=== PATIENT | male | born 1945 | race Caucasian/White ===

== ENCOUNTER 2016-09-02 14:50 | Emergency (ER) | payer MEDICARE, MEDICAID ==
[2016-09-02] MEDS ORDERED: SODIUM CHLOR 0.9% 1000 ML INJ 1,000 ML IV SCH (15:27)
[2016-09-02] MEDS ORDERED: SODIUM CHLORIDE 0.9% FLUSH 10 ML FLUSH IV FLUSH PRN (15:30)
--- NOTE | 2016-09-02 15:32 | PD ---
HPI Chief Complaint: heat injury Time Seen by Provider: 15:29 Travel History International Travel<30 days: No Contact w/Intl Traveler<30days: No History of Present Illness HPI 71-year-old Bangladeshi male presents to the emergency department via EMS , with reports of possible heat exhaustion. Patient is a patient with history of dementia who was taken outside for some outdoor time, when he was lost for approximately 45 minutes prior to being found again. At that time the patient felt lethargic, and nauseous. He denied headache or other symptoms. No cramping. Patient speaks only Czech. On the transfer and the patient was given 500 mL was normal saline with improvement of his symptoms. Currently he complains of no pain or nausea. He has no known drug allergies. [facility] Social History Alcohol Use: No Tobacco Use: No Substance Use: No Allergies-Medications (Allergen,Severity, Reaction): Coded Allergies: No Known Allergies (Unverified , 09/02/16) Review of Systems ROS Limitations: Poor Historian Except as stated in HPI: all other systems reviewed are Neg General / Constitutional: No: Fever Eyes: No: Visual changes HENT: No: Headaches Cardiovascular: No: Chest Pain or Discomfort Respiratory: No: Shortness of Breath Gastrointestinal: No: Abdominal Pain Genitourinary: No: Dysuria Musculoskeletal: No: Pain Skin: No Rash Neurologic: No: Weakness Psychiatric: No: Depression Endocrine: No: Polydipsia Hematologic/Lymphatic: No: Easy Bruising Physical Exam Narrative GENERAL: Patient appears in no acute distress. SKIN: Warm and dry. Normal color. Normal turgor. No tenting. HEAD: Atraumatic. Normocephalic. EYES: Pupils equal and round. No scleral icterus. No injection or drainage. ENT: No nasal bleeding or discharge. Mucous membranes pink and moist. Pharynx clear. Airway is patent. NECK: Trachea midline. Supple and nontender. CARDIOVASCULAR: Regular rate and rhythm. RESPIRATORY: No accessory muscle use. Clear to auscultation. Breath sounds equal bilaterally. GASTROINTESTINAL: Abdomen soft, non-tender, nondistended. Hepatic and splenic margins not palpable. MUSCULOSKELETAL: Extremities without clubbing, cyanosis, or edema. No obvious deformities. NEUROLOGICAL: Awake and alert. No obvious cranial nerve deficits. Motor grossly within normal limits. Five out of 5 muscle strength in the arms and legs. Normal speech. PSYCHIATRIC: Appropriate mood and affect; insight and judgment normal. Data Data Last Documented VS Vital Signs Date Time Temp Pulse Resp B/P Pulse Ox O2 Delivery O2 Flow Rate FiO2 09/02/16 16:03 61 18 135/74 95 Room Air Orders Complete Blood Count With Diff (09/02/16 15:27) Comprehensive Metabolic Panel (09/02/16 15:27) Urinalysis - C+S If Indicated (09/02/16 15:27) Iv Access Insert/Monitor (09/02/16 15:) Ecg Monitoring (09/02/16 15:27) Oximetry (09/02/16 15:27) Sodium Chlor 0.9% 1000 Ml Inj (Ns 1000 M (09/02/16 15:27) Sodium Chloride 0.9% Flush (Ns Flush) (09/02/16 15:30) Electrocardiogram (09/02/16 15:27) Orthostatic Vital Signs (09/02/16 16:47) Labs Laboratory Tests Test 09/02/16 15:42 White Blood Count 7.5 TH/MM3 Red Blood Count 4.16 MIL/MM3 Hemoglobin 12.9 GM/DL Hematocrit 39.1 % Mean Corpuscular Volume 94.0 FL Mean Corpuscular Hemoglobin 31.1 PG Mean Corpuscular Hemoglobin 33.1 % Concent Red Cell Distribution Width 15.0 % Platelet Count 174 TH/MM3 Mean Platelet Volume 8.9 FL Neutrophils (%) (Auto) 64.3 % Lymphocytes (%) (Auto) 22.7 % Monocytes (%) (Auto) 9.4 % Eosinophils (%) (Auto) 3.1 % Basophils (%) (Auto) 0.5 % Neutrophils # (Auto) 4.9 TH/MM3 Lymphocytes # (Auto) 1.7 TH/MM3 Monocytes # (Auto) 0.7 TH/MM3 Eosinophils # (Auto) 0.2 TH/MM3 Basophils # (Auto) 0.0 TH/MM3 CBC Comment DIFF FINAL Differential Comment Sodium Level 143 MEQ/L Potassium Level 4.4 MEQ/L Chloride Level 107 MEQ/L Carbon Dioxide Level 33.1 MEQ/L Anion Gap 3 MEQ/L Blood Urea Nitrogen 15 MG/DL Creatinine 1.03 MG/DL Estimat Glomerular Filtration 71 ML/MIN Rate Random Glucose 82 MG/DL Calcium Level 8.3 MG/DL Total Bilirubin 0.3 MG/DL Aspartate Amino Transf 19 U/L (AST/SGOT) Alanine Aminotransferase 19 U/L (ALT/SGPT) Alkaline Phosphatase 74 U/L Total Protein 6.6 GM/DL Albumin 3.1 GM/DL MDM Medical Decision Making Medical Screen Exam Complete: Yes Emergency Medical Condition: Yes Differential Diagnosis Heat injury. Nausea. Heat exhaustion. Narrative Course Patient is medically stable at time of exam. Basic labs ordered including CBC, CMP, and urinalysis. EKG is ordered. Patient is given 1000 mL's normal saline bolus. EKG shows sinus bradycardia with sinus arrhythmia. CBC shows no acute findings other than some mild anemia with a hemoglobin of 12.9. I have no previous labs to compare. CMP shows normal electrolytes, carbon dioxide somewhat high at 33.1 with an anion gap of 3. Creatinine is normal at 1.03. Albumin is low at 3.1. Urinalysis is Patient is much improved after saline bolus. Patient is felt to be stable for discharge back to this nursing facility. Patient will be followed up by the physician at that residence. Diagnosis Primary Impression: Heat exhaustion Qualified Code: T67.5XXA - Heat exhaustion, initial encounter Additional Impression: Mild dehydration Referrals: Primary Care Physician Patient Instructions: General Instructions, Heat Exhaustion (ED) Additional Instructions: Patient is much improved after saline bolus. Patient is felt to be stable for discharge back to this nursing facility. Patient will be followed up by the physician at that residence. Med/Other Pt SpecificInfo: No Change to Meds Disposition: 03 DISCHARGE TO SNF Condition: Stable Chad Lopes Sep 02, 2016 15:32
[2016-09-02 15:59] VITALS: RESP 18; O2SAT 98
[2016-09-02 16:03] VITALS: BP 135/74; PULSE 61; RESP 18; O2SAT 95
[2016-09-02 16:12] LABS: AUTOMATED NEUTROPHIL # 4.9 TH/MM3 (1.8-7.7); BASOPHIL % 0.5 % (0.0-2.0); EOSINOPHIL # 0.2 TH/MM3 (0-0.4); EOSINOPHIL % 3.1 % (0.0-4.0); HEMATOCRIT 39.1 % (39.0-51.0); HEMO FLAGS DIFF FINAL; LYMPH % 22.7 % (9.0-44.0); LYMPHOCYTE # 1.7 TH/MM3 (1.0-4.8); MEAN CORPUSCULAR HEMOGLOBIN 31.1 PG (27.0-34.0); MEAN CORPUSCULAR HGB CONC 33.1 % (32.0-36.0); MONO % 9.4 % (0.0-8.0); NEUT % 64.3 % (16.0-70.0); PLATELET COUNT 174 TH/MM3 (150-450); RED BLOOD COUNT 4.16 MIL/MM3 (4.50-5.90); WHITE BLOOD COUNT 7.5 TH/MM3 (4.0-11.0)
[2016-09-02 16:32] LABS: ALKALINE PHOSPHATASE 74 U/L (45-117); TOTAL BILIRUBIN ADULT 0.3 MG/DL (0.2-1.0)
[2016-09-02 16:36] LABS: ALT (GPT) 19 U/L (12-78); ANION GAP 3 MEQ/L (5-15); AST (GOT) 19 U/L (15-37); BICARBONATE 33.1 MEQ/L (21.0-32.0); BLOOD UREA NITROGEN 15 MG/DL (7-18); CHLORIDE 107 MEQ/L (98-107); GLOMERULAR FILTRATION RATE 71 ML/MIN (>89); POTASSIUM 4.4 MEQ/L (3.5-5.1); SODIUM (NA) 143 MEQ/L (136-145)
[2016-09-02 17:38] LABS: BLOOD, URINE NEG (NEG); GLUCOSE,URINE NEG (NEG); KETONE, URINE NEG (NEG); NITRITE,URINE NEG (NEG); URINE COLOR LIGHT-YELLOW (YELLW/STRAW)
[2016-09-02 17:40] LABS: COMMENT (UR) CULT NOT INDICATED; CULTURE IF INDICATED CULT NOT INDICATED
--- NOTE | 2016-09-03 13:15 | EKG ---
Date Performed: 09/02/2016 Time Performed: 15:49:35 PTAGE: 71 years EKG: SINUS BRADYCARDIA WITH SINUS ARRHYTHMIA BORDERLINE ECG NO PREVIOUS TRACING DOCTOR: Cullen Parks Interpretating Date/Time 09/03/2016 13:12:22
== END 2016-09-02 19:00 | disposition home or self-care (01) ==
LOC: NEPE 14:50
DX: T67.5XXA Heat exhaustion, unspecified, initial encounter (principal); E86.0 Dehydration; R00.1 Bradycardia, unspecified; D64.9 Anemia, unspecified; F03.90 Unspecified dementia, unspecified severity, without behavioral disturbance, psychotic disturbance, mood disturbance, and anxiety; I49.8 Other specified cardiac arrhythmias
CPT/HCPCS: 80053; 81001; 85025; 93005; 96360; 99284; J7030

== ENCOUNTER 2017-03-04 09:17 | Emergency (ER) | payer MEDICAID, MEDICARE ==
[~2017-03-04] VITALS: Ht 170.2 cm; Wt 75.5 kg
[2017-03-04 09:23] VITALS: BP 177/83; PULSE 85; RESP 18; TEMP 98; O2SAT 97
[2017-03-04 09:29] VITALS: BP 177/83; PULSE 92; RESP 18; TEMP 98; O2SAT 97
--- NOTE | 2017-03-04 09:36 | PD ---
HPI Chief Complaint: Bleeding Time Seen by Provider: 09:36 Travel History International Travel<30 days: No Contact w/Intl Traveler<30days: No Traveled to known affect area: No History of Present Illness HPI 71-year-old male came to the emergency room with history of hematuria that was noticed at the assisted today. Patient was diagnosed with UTI, ESBL about 2 days ago. Patient has dementia with behavioral issues and they tried to put a catheter to contain the infection since patient is incontinent. However during the procedure there was some bleeding and today when they tried to insert the catheter again he bled a lot which made the assisted concern and he was sent here. Patient was asleep when I went to see him. I was told that his baseline is dementia and noncommunicative. But he has been more lethargic than his baseline. Vital signs were otherwise stable. No obvious bleeding at this point. PFSH Past Medical History Narrative Medical List of his past medical, surgical, social and family history is reviewed from the nursing note. Anxiety: Yes Cardiovascular Problems: Yes Dementia: Yes Diminished Hearing: No Genitourinary: Yes (UTI) Hypertension: Yes Psychiatric: Yes Past Surgical History Surgical History: Unable to Obtain Social History Alcohol Use: No Tobacco Use: No Substance Use: No Allergies-Medications (Allergen,Severity, Reaction): Coded Allergies: No Known Allergies (Unverified Adverse Reaction, Unknown, 03/04/17) Comments No known drug allergies. Reported Meds & Prescriptions Reported Meds & Active Scripts Active Reported Aripiprazole 20 Mg Tab 20 Mg PO DAILY@1600 Tylenol (Acetaminophen) 325 Mg Tab 650 Mg PO Q4H PRN Florastor (Saccharomyces Boulardii) 250 Mg Cap 250 Mg PO BID Melatonin 5 Mg Tab 6 Mg PO HS Atorvastatin (Atorvastatin Calcium) 20 Mg Tab 20 Mg PO HS Lisinopril 10 Mg Tab 10 Mg PO BID Metoprolol Tartrate 25 Mg Tab 25 Mg PO BID Tizanidine (Tizanidine HCl) 4 Mg Cap 4 Mg PO BID Depakote DR (Divalproex Sodium) 125 Mg Tabdr 125 Mg PO BID Namzaric (Memantine-Donepezil) 28-10 Mg Cap 1 Cap PO HS Lactulose 10 Gram/15 Ml (15 Ml) Solution 30 Ml PO TID Aspirin 81 Mg Chew 81 Mg CHEW DAILY Xanax (Alprazolam) 0.5 Mg Tab 0.5 Mg PO BID Bactrim DS (Sulfamethoxazole-Trimethoprim) 800-160 Mg Tab 1 Tab PO BID Zoloft (Sertraline HCl) 25 Mg Tab 75 Mg PO HS Narrative Medication List of his home medications reviewed from the nursing note. Review of Systems Except as stated in HPI: all other systems reviewed are Neg Genitourinary: Positive: Hematuria Physical Exam Narrative GENERAL: Advanced dementia, noncommunicative, no obvious distress SKIN: Focused skin assessment warm/dry. HEAD: Atraumatic. Normocephalic. EYES: Pupils equal and round. No scleral icterus. No injection or drainage. ENT: No nasal bleeding or discharge. Mucous membranes pink and moist. NECK: Trachea midline. No JVD. CARDIOVASCULAR: Regular rate and rhythm. No murmur appreciated. RESPIRATORY: No accessory muscle use. Clear to auscultation. Breath sounds equal bilaterally. GASTROINTESTINAL: Abdomen soft, non-tender, nondistended. Hepatic and splenic margins not palpable. : Circumcised, no active bleeding MUSCULOSKELETAL: No obvious deformities. No clubbing. No cyanosis. No edema. NEUROLOGICAL: Awake and alert. No obvious cranial nerve deficits. Motor grossly within normal limits. Normal speech. PSYCHIATRIC: Appropriate mood and affect; insight and judgment normal. Data Data Last Documented VS Vital Signs Date Time Temp Pulse Resp B/P (MAP) Pulse Ox O2 Delivery O2 Flow Rate FiO2 03/04/17 15:02 03/04/17 12:59 95 16 99 Room Air 03/04/17 09:29 98.0 Orders Orders Complete Blood Count With Diff (03/04/17 09:43) Comprehensive Metabolic Panel (03/04/17 09:43) Urinalysis - C+S If Indicated (03/04/17 09:43) Ct Abd/Pel W/O Iv Contrast (03/04/17 09:43) Ecg Monitoring (03/04/17 09:43) Iv Access Insert/Monitor (03/04/17 09:43) Sodium Chloride 0.9% Flush (Ns Flush) (03/04/17 09:45) Sodium Chlor 0.9% 1000 Ml Inj (Ns 1000 M (03/04/17 09:43) Bladder/Catheter Irrigation (03/04/17 09:43) Prothrombin Time / Inr (Pt) (03/04/17 09:43) Type And Screen (03/04/17 09:43) Ct Abd/Pel W Iv Contrast(Rout) (03/04/17 ) Iohexol 350 Inj (Omnipaque 350 Inj) (03/04/17 11:34) Urine Culture (03/04/17 10:43) Ceftriaxone Inj (Rocephin Inj) (03/04/17 12:00) Nitrofurantoin Monohyd Macrocr (Macrobid (03/04/17 12:00) Metoprolol Tartrate (Lopressor) (03/04/17 12:00) Ed Discharge Order (03/04/17 12:11) Labs Laboratory Tests Test 03/04/17 09:30 03/04/17 10:43 White Blood Count 7.0 TH/MM3 Red Blood Count 3.46 MIL/MM3 Hemoglobin 11.4 GM/DL Hematocrit 33.7 % Mean Corpuscular Volume 97.5 FL Mean Corpuscular Hemoglobin 32.8 PG Mean Corpuscular Hemoglobin Concent 33.7 % Red Cell Distribution Width 15.6 % Platelet Count 172 TH/MM3 Mean Platelet Volume 8.9 FL Neutrophils (%) (Auto) 64.2 % Lymphocytes (%) (Auto) 23.0 % Monocytes (%) (Auto) 10.1 % Eosinophils (%) (Auto) 2.2 % Basophils (%) (Auto) 0.5 % Neutrophils # (Auto) 4.5 TH/MM3 Lymphocytes # (Auto) 1.6 TH/MM3 Monocytes # (Auto) 0.7 TH/MM3 Eosinophils # (Auto) 0.2 TH/MM3 Basophils # (Auto) 0.0 TH/MM3 CBC Comment DIFF FINAL Differential Comment Prothrombin Time 9.7 SEC Prothromb Time International Ratio 1.0 RATIO Blood Urea Nitrogen 36 MG/DL Creatinine 1.43 MG/DL Random Glucose 88 MG/DL Total Protein 6.6 GM/DL Albumin 3.0 GM/DL Calcium Level 8.1 MG/DL Alkaline Phosphatase 57 U/L Aspartate Amino Transf (AST/SGOT) 30 U/L Alanine Aminotransferase (ALT/SGPT) 18 U/L Total Bilirubin 0.4 MG/DL Sodium Level 140 MEQ/L Potassium Level 5.1 MEQ/L Chloride Level 108 MEQ/L Carbon Dioxide Level 25.7 MEQ/L Anion Gap 6 MEQ/L Estimat Glomerular Filtration Rate 48 ML/MIN Urine Color YELLOW Urine Turbidity CLOUDY Urine pH 5.5 Urine Specific [place] 1.018 Urine Protein NEG mg/dL Urine Glucose (UA) NEG mg/dL Urine Ketones NEG mg/dL Urine Occult Blood LARGE Urine Nitrite NEG Urine Bilirubin NEG Urine Urobilinogen LESS THAN 2.0 MG/DL Urine Leukocyte Esterase NEG Urine RBC 40 /hpf Urine WBC 9 /hpf Urine Uric Acid Crystals MANY /hpf Urine Bacteria OCC /hpf Urine Mucus FEW /lpf Microscopic Urinalysis Comment CULTURE INDICATED MDM Medical Decision Making Medical Screen Exam Complete: Yes Emergency Medical Condition: Yes Medical Record Reviewed: Yes Differential Diagnosis Traumatic hematuria, bladder cancer, renal tumor Narrative Course 12:[address] scan does not show any solid tumor of the kidney or the bladder. The nurse was asked to do continuous bladder irrigation but since putting the catheter and he has had clear urine coming out. Blood test results are within acceptable limits except for mild renal insufficiency. I'm comfortable discharging him home. Patient is more awake and his heart rate is in 1 teens and patient is hypertensive. I was told by the nurse that he did not receive his morning blood pressure medications. I have ordered for 25 mg of Lopressor. UA was suggestive of UTI which patient does have. I gave him a dose of Rocephin and Macrobid here. Procedures EKG Prior to Arrival: No Diagnosis Primary Impression: UTI (urinary tract infection) Qualified Codes: N39.0 - Urinary tract infection, site not specified; R31.9 - Hematuria, unspecified Additional Impressions: iatrogenic hematuria Renal insufficiency Referrals: Primary Care Physician Additional Instructions: Continue giving the antibiotic that patient is getting in the assisted. Follow-up with primary care next couple days. Return to the ER if condition worsens or any other new concerns. Med/Other Pt SpecificInfo: No Change to Meds Disposition: DISCHARGE HOME Condition: Stable Logan Martini MD Mar 04, 2017 09:36
[2017-03-04] MEDS ORDERED: SODIUM CHLOR 0.9% 1000 ML INJ 1,000 ML IV ONE (09:43)
[2017-03-04] MEDS ORDERED: SODIUM CHLORIDE 0.9% FLUSH 10 ML FLUSH IVF PRN (09:45)
[2017-03-04 10:21] LABS: AUTOMATED NEUTROPHIL # 4.5 TH/MM3 (1.8-7.7); BASOPHIL % 0.5 % (0.0-2.0); EOSINOPHIL # 0.2 TH/MM3 (0-0.4); EOSINOPHIL % 2.2 % (0.0-4.0); HEMATOCRIT 33.7 % (39.0-51.0); HEMOGLOBIN 11.4 GM/DL (13.0-17.0); LYMPHOCYTE # 1.6 TH/MM3 (1.0-4.8); MEAN CELL VOLUME 97.5 FL (80.0-100.0); MEAN CORPUSCULAR HEMOGLOBIN 32.8 PG (27.0-34.0); MEAN CORPUSCULAR HGB CONC 33.7 % (32.0-36.0); MEAN PLATELET VOLUME 8.9 FL (7.0-11.0); MONO % 10.1 % (0.0-8.0); MONOCYTE # 0.7 TH/MM3 (0-0.9); NEUT % 64.2 % (16.0-70.0); PLATELET COUNT 172 TH/MM3 (150-450); RED BLOOD COUNT 3.46 MIL/MM3 (4.50-5.90); RED CELL DISTRIBUTION WIDTH 15.6 % (11.6-17.2)
--- NOTE | 2017-03-04 10:24 | RADRPT ---
EXAM DATE/TIME: 03/04/2017 09:55 [facility] COMPARISON: No previous studies available for comparison. INDICATIONS : Hematuria. ORAL CONTRAST: No oral contrast ingested. RADIATION DOSE: 8.04 CTDIvol (mGy) ; Patient positioning MEDICAL HISTORY : Dementia. Hypertension. SURGICAL HISTORY : abdominal surgery ENCOUNTER: Initial ACUITY: 1 day PAIN SCALE: 0/10 LOCATION: Bilateral abdomen TECHNIQUE: Volumetric scanning of the abdomen and pelvis was performed. Using automated exposure control and ad justment of the mA and/or kV according to patient size, radiation dose was kept as low as reasonably achievable to obtain optimal diagnostic quality images. DICOM format image data is available electro nically for review and comparison. FINDINGS: Minimal parenchymal changes right lung base nonspecific. Inflammatory process cannot be entirely exc luded. The liver is unremarkable Spleen is small Right kidney: 4.6 cm Bosniak 2 right renal mass Left kidney: 2 low-density lesions left kidney one measuring 4.3 cm, the other 3.5 cm, both adequately evaluated o n today's exam without contrast Retroperitoneum is unremarkable Pelvic contents appear normal without inflammatory changes. CONCLUSION: Inconclusive renal masses more concerning on the right than the left. Lack of intravenous contrast evaluation of kidneys and bladder difficult. Significant pathology can be missed. Steven Chang MD FACR on March 04, 2017 at 10:19 Board Certified Radiologist. This report was verified electronically.
[2017-03-04 10:34] LABS: PROTHROMBIN TIME - PATIENT 9.7 SEC (9.8-11.6)
[2017-03-04 10:41] LABS: ALKALINE PHOSPHATASE 57 U/L (45-117); TOTAL BILIRUBIN ADULT 0.4 MG/DL (0.2-1.0); TOTAL PROTEIN 6.6 GM/DL (6.4-8.2)
[2017-03-04 10:56] LABS: ALT (GPT) 18 U/L (12-78); AST (GOT) 30 U/L (15-37); BICARBONATE 25.7 MEQ/L (21.0-32.0); BLOOD UREA NITROGEN 36 MG/DL (7-18); CALCIUM 8.1 MG/DL (8.5-10.1); CHLORIDE 108 MEQ/L (98-107); CREATININE 1.43 MG/DL (0.60-1.30); GLOMERULAR FILTRATION RATE 48 ML/MIN (>89); GLUCOSE,RANDOM 88 MG/DL (74-106); SODIUM (NA) 140 MEQ/L (136-145)
[2017-03-04] MEDS ORDERED: TYLE325T PO (11:32)
[2017-03-04] MEDS ORDERED: METO25TA3 PO (11:32)
[2017-03-04] MEDS ORDERED: ALPR.5 PO (11:32)
[2017-03-04] MEDS ORDERED: MELA5 PO (11:32)
[2017-03-04] MEDS ORDERED: DEPA125T PO (11:32)
[2017-03-04] MEDS ORDERED: LACT10SO5 PO (11:32)
[2017-03-04] MEDS ORDERED: LISI10TA3 PO (11:32)
[2017-03-04] MEDS ORDERED: FLOR250C PO (11:32)
[2017-03-04] MEDS ORDERED: ZOLO25TA PO (11:32)
[2017-03-04] MEDS ORDERED: ATOR20TA15 PO (11:32)
[2017-03-04] MEDS ORDERED: TIZA4CAP3 PO (11:32)
[2017-03-04] MEDS ORDERED: BACT800T5 PO (11:32)
[2017-03-04] MEDS ORDERED: ASPI-516 CHEW (11:32)
[2017-03-04] MEDS ORDERED: ARIP1TAB14 PO (11:32)
[2017-03-04] MEDS ORDERED: MEMA1CAP2 PO (11:32)
[2017-03-04] MEDS ORDERED: IOHEXOL 350 MG/ML 10 ML VIAL (for RAD DIAG) IVCONTRAST ONE (11:34)
[2017-03-04 11:42] LABS: BACTERIA, URINE OCC /hpf; BILIRUBIN, URINE NEG (NEG); BLOOD, URINE LARGE (NEG); GLUCOSE,URINE NEG (NEG); KETONE, URINE NEG (NEG); MUCUS URINE FEW /lpf (OCC); NITRITE,URINE NEG (NEG); PH, URINE 5.5 (5.0-8.5); URIC ACID CRYSTALS, URINE MANY /hpf; URINE COLOR YELLOW (YELLW/STRAW); URINE LEUKOCYTE ESTERASE NEG (NEG)
[2017-03-04 11:51] VITALS: BP 192/82; PULSE 115; RESP 18; O2SAT 98
--- NOTE | 2017-03-04 11:51 | RADRPT ---
EXAM DATE/TIME: 03/04/2017 11:25 [facility] COMPARISON: CT ABDOMEN & PELVIS W/O CONTRAST, March 04, 2017, 9:55. INDICATIONS : Urethral bleeding for 1 week IV CONTRAST: 94 cc Omnipaque 350 (iohexol) IV ORAL CONTRAST: No oral contrast ingested. RADIATION DOSE: 14.51 CTDIvol (mGy) MEDICAL HISTORY : Hypertension. Dementia. SURGICAL HISTORY : None. ENCOUNTER: Subsequent ACUITY: 1 week PAIN SCALE: Non-responsive LOCATION: flank TECHNIQUE: Volumetric scanning of the abdomen and pelvis was performed. Using automated exposure control and ad justment of the mA and/or kV according to patient size, radiation dose was kept as low as reasonably achievable to obtain optimal diagnostic quality images. DICOM format image data is available electro nically for review and comparison. FINDINGS: Again seen are the minimal parenchymal changes left base. The liver and spleen are unremarkable Pancreas appears normal Right kidney: There is a 5 cm complex Bosniak grade 2-3 cystic mass right kidney containing internal structure and calcification. This is probably not the source of hematuria. Left kidney: Masses in the left kidney are simple cyst or not the cause of hematuria. There is third 1.1 cm mass without enhancement lower pole right kidney again probably cysts. There is no acute pyelonephritis I don't see of bladder mass as source of hematuria. There no inflammatory changes in the abdomen or pelvis Moderate stool is seen throughout the colon Feldman catheter is in the bladder. CONCLUSION: 1. There is no acute pyelonephritis 2. Bosniak 2-3 cysts right kidney probably not the source of hematuria 3. Multiple cysts left kidney, probably not source of hematuria 4. I don't see stone or bladder mass 5. Source of hematuria is not apparent. Steven Chang MD FACR on March 04, 2017 at 11:44 Board Certified Radiologist. This report was verified electronically.
[2017-03-04] MEDS ORDERED: cefTRIAXone INJ 1,000 MG in SODIUM CHLORIDE 0.9% INJ 100 ML IV ONE (12:00)
[2017-03-04] MEDS ORDERED: NITROFURANTOIN MONOHYD MACROCR 100 MG CAP PO ONE (12:00)
[2017-03-04] MEDS ORDERED: METOPROLOL TARTRATE 25 MG TAB PO ONE (12:00)
[2017-03-04 12:42] VITALS: BP 192/88; PULSE 112; RESP 16; O2SAT 96
[2017-03-04 12:59] VITALS: BP 178/75; PULSE 95; RESP 16; O2SAT 99
== END 2017-03-04 15:04 | disposition home or self-care (01) ==
LOC: NEPE 09:17
DX: N39.0 Urinary tract infection, site not specified (principal); R31.9 Hematuria, unspecified; N28.1 Cyst of kidney, acquired; F03.90 Unspecified dementia, unspecified severity, without behavioral disturbance, psychotic disturbance, mood disturbance, and anxiety; F41.9 Anxiety disorder, unspecified; I10 Essential (primary) hypertension; Z79.82 Long term (current) use of aspirin; Z79.899 Other long term (current) drug therapy
CPT/HCPCS: 74176; 74177; 80053; 81001; 85025; 85610; 86850; 86900; 86901; 87086; 96361; 96365; 99285; J0696; J7030; Q9967

== ENCOUNTER 2017-03-08 09:01 | Emergency (ER) | payer MEDICARE ==
[~2017-03-08] VITALS: Ht 170.2 cm; Wt 75.5 kg
[~2017-03-08 09:01] MED LIST: ALPR.5 PO; ARIP1TAB14 PO; ASPI-516 CHEW; ATOR20TA15 PO; BACT800T5 PO; DEPA125T PO; FLOR250C PO; LACT10SO5 PO; LISI10TA3 PO; MELA5 PO; MEMA1CAP2 PO; METO25TA3 PO; TIZA4CAP3 PO; TYLE325T PO; ZOLO25TA PO
[2017-03-08 09:08] VITALS: BP 148/72; PULSE 93; RESP 17; TEMP 98
[2017-03-08] MEDS ORDERED: FLOR250C PO (09:45)
[2017-03-08] MEDS ORDERED: LACT10SO PO (09:45)
--- NOTE | 2017-03-08 10:55 | PD ---
HPI Chief Complaint: Complaint Time Seen by Provider: 10:11 Travel History International Travel<30 days: No Contact w/Intl Traveler<30days: No Traveled to known affect area: No History of Present Illness HPI 71yo M presented to the ED with hematuria [facility]. The pt was brought to the hospital two days prior for hematuria and was diagnosed with a UTI and ESBL. A Feldman was placed for 48hrs. After removal, the NH noticed aleksandra , bright red blood and brought him back to the ED. Pt was a poor historian due to his AMS and Amharic as his primary language. HPI was taken using a medical or surgical instrument maker. Modifying Factors: None Associated Signs & Symptoms: Hematuria after catheter removal Risk Factors: Previous hematuria PFSH Past Medical History Anxiety: Yes Depression: Yes Cardiovascular Problems: Yes High Cholesterol: Yes Dementia: Yes Diminished Hearing: No GERD: Yes Glaucoma: Yes Genitourinary: Yes (UTI) Hypertension: Yes Psychiatric: Yes (INSOMNIA, MOOD DISORDER) Tetanus Vaccination: Unknown ?: Not Social History Alcohol Use: No Tobacco Use: No Substance Use: No Allergies-Medications (Allergen,Severity, Reaction): Coded Allergies: No Known Allergies (Unverified Adverse Reaction, Unknown, 03/04/17) Reported Meds & Prescriptions Reported Meds & Active Scripts Active Reported Lactulose Liq (Lactulose) 10 Gm/15 Ml Soln 30 Ml PO TID Aripiprazole 20 Mg Tab 20 Mg PO DAILY@1600 Tylenol (Acetaminophen) 325 Mg Tab 650 Mg PO Q4H PRN Florastor (Saccharomyces Boulardii) 250 Mg Cap 250 Mg PO BID Melatonin 5 Mg Tab 6 Mg PO HS Atorvastatin (Atorvastatin Calcium) 20 Mg Tab 20 Mg PO HS Lisinopril 10 Mg Tab 10 Mg PO BID Metoprolol Tartrate 25 Mg Tab 25 Mg PO BID Tizanidine (Tizanidine HCl) 4 Mg Cap 4 Mg PO BID Depakote DR (Divalproex Sodium) 125 Mg Tabdr 125 Mg PO BID Namzaric (Memantine-Donepezil) 28-10 Mg Cap 1 Cap PO HS Aspirin 81 Mg Chew 81 Mg CHEW DAILY Xanax (Alprazolam) 0.5 Mg Tab 0.5 Mg PO BID Zoloft (Sertraline HCl) 25 Mg Tab 75 Mg PO HS Review of Systems ROS Limitations: Altered Mental Status Physical Exam Exam Limitations: Altered Mental Status, Poor Historian Narrative GENERAL: 71yo somnolent M who is WDWN. Poor historian due to AMS and primary language being Amharic. Awake and alert. SKIN: Warm and dry. HEAD: Atraumatic. Normocephalic. NECK: Trachea midline. No JVD. CARDIOVASCULAR: Regular rate and rhythm. RESPIRATORY: No accessory muscle use. Clear to auscultation. Breath sounds equal bilaterally. GASTROINTESTINAL: Abdomen soft, non-tender, nondistended. Hepatic and splenic margins not palpable. MUSCULOSKELETAL: Extremities without clubbing, cyanosis, or edema. No obvious deformities. NEUROLOGICAL: No obvious cranial nerve deficits. Motor grossly within normal limits. Normal speech. PSYCHIATRIC: Appropriate mood and affect; insight and judgment poor. Data Data Last Documented VS Vital Signs Date Time Temp Pulse Resp B/P (MAP) Pulse Ox O2 Delivery O2 Flow Rate FiO2 03/08/17 09:08 98.0 93 17 148/72 (97) Orders Orders Complete Blood Count With Diff (03/08/17 10:15) Basic Metabolic Panel (Bmp) (03/08/17 10:15) Prothrombin Time / Inr (Pt) (03/08/17 10:15) Act Partial Throm Time (Ptt) (03/08/17 10:15) Urinalysis - C+S If Indicated (03/08/17 10:15) Urinary Catheter Insert/Apply (03/08/17 10:37) Urinary Catheter - Remove (03/08/17 11:16) Ed Discharge Order (03/08/17 12:20) Labs Laboratory Tests Test 03/08/17 10:39 03/08/17 11:05 White Blood Count 4.8 TH/MM3 Red Blood Count 3.55 MIL/MM3 Hemoglobin 11.3 GM/DL Hematocrit 34.0 % Mean Corpuscular Volume 95.9 FL Mean Corpuscular Hemoglobin 32.0 PG Mean Corpuscular Hemoglobin Concent 33.4 % Red Cell Distribution Width 15.1 % Platelet Count 235 TH/MM3 Mean Platelet Volume 8.0 FL Neutrophils (%) (Auto) 59.4 % Lymphocytes (%) (Auto) 29.5 % Monocytes (%) (Auto) 6.3 % Eosinophils (%) (Auto) 4.3 % Basophils (%) (Auto) 0.5 % Neutrophils # (Auto) 2.8 TH/MM3 Lymphocytes # (Auto) 1.4 TH/MM3 Monocytes # (Auto) 0.3 TH/MM3 Eosinophils # (Auto) 0.2 TH/MM3 Basophils # (Auto) 0.0 TH/MM3 CBC Comment DIFF FINAL Differential Comment Prothrombin Time 9.9 SEC Prothromb Time International Ratio 1.0 RATIO Activated Partial Thromboplast Time 24.3 SEC Blood Urea Nitrogen 15 MG/DL Creatinine 1.03 MG/DL Random Glucose 131 MG/DL Calcium Level 8.5 MG/DL Sodium Level 142 MEQ/L Potassium Level 4.0 MEQ/L Chloride Level 106 MEQ/L Carbon Dioxide Level 30.6 MEQ/L Anion Gap 5 MEQ/L Estimat Glomerular Filtration Rate 71 ML/MIN Urine Color YELLOW Urine Turbidity CLEAR Urine pH 5.0 Urine Specific [place] 1.012 Urine Protein NEG mg/dL Urine Glucose (UA) NEG mg/dL Urine Ketones NEG mg/dL Urine Occult Blood MOD Urine Nitrite NEG Urine Bilirubin NEG Urine Urobilinogen LESS THAN 2.0 MG/DL Urine Leukocyte Esterase NEG Urine RBC 5 /hpf Urine WBC 1 /hpf Urine Squamous Epithelial Cells <1 /hpf Urine Renal Epithelial Cells <1 /hpf Urine Mucus FEW /lpf Microscopic Urinalysis Comment CULT NOT INDICATED MDM Medical Decision Making Medical Screen Exam Complete: Yes Emergency Medical Condition: Yes Interpretation(s) Laboratory Tests Test 03/08/17 10:39 03/08/17 11:05 Red Blood Count 3.55 MIL/MM3 (4.50-5.90) Hemoglobin 11.3 GM/DL (13.0-17.0) Hematocrit 34.0 % (39.0-51.0) Eosinophils (%) (Auto) 4.3 % (0.0-4.0) Random Glucose 131 MG/DL (74-106) Estimat Glomerular Filtration Rate 71 ML/MIN (>89) Urine Occult Blood MOD (NEG) Urine RBC 5 /hpf (0-3) Urine Mucus FEW /lpf (OCC) Differential Diagnosis Hematuria after catheter removal Narrative Course Patient does not know why he is in the ER. He has baseline dementia but has no current complaints. Apparently the penitentiary had removed his catheter and there was hematuria after the removal. He had a Feldman catheter placed in the ER and there was no significant bleeding. UA was fairly unremarkable. Lab work did not show significant anemia. At this point, my plan would be to release the patient back to [facility]entiary. Hematuria has apparently resolved. Return for any new issues as needed. Diagnosis Primary Impression: Hematuria Disposition: 03 DISCHARGE TO SNF Condition: Stable SoonMaura alvarez MD Mar 08, 2017 10:55
[2017-03-08 10:57] LABS: AUTOMATED NEUTROPHIL # 2.8 TH/MM3 (1.8-7.7); BASOPHIL % 0.5 % (0.0-2.0); EOSINOPHIL # 0.2 TH/MM3 (0-0.4); EOSINOPHIL % 4.3 % (0.0-4.0); HEMOGLOBIN 11.3 GM/DL (13.0-17.0); LYMPH % 29.5 % (9.0-44.0); LYMPHOCYTE # 1.4 TH/MM3 (1.0-4.8); MEAN CELL VOLUME 95.9 FL (80.0-100.0); MEAN CORPUSCULAR HGB CONC 33.4 % (32.0-36.0); MONO % 6.3 % (0.0-8.0); MONOCYTE # 0.3 TH/MM3 (0-0.9); NEUT % 59.4 % (16.0-70.0); PLATELET COUNT 235 TH/MM3 (150-450); RED BLOOD COUNT 3.55 MIL/MM3 (4.50-5.90); RED CELL DISTRIBUTION WIDTH 15.1 % (11.6-17.2); WHITE BLOOD COUNT 4.8 TH/MM3 (4.0-11.0)
[2017-03-08 11:07] LABS: PROTHROMBIN TIME - PATIENT 9.9 SEC (9.8-11.6)
[2017-03-08 11:18] LABS: BICARBONATE 30.6 MEQ/L (21.0-32.0); CALCIUM 8.5 MG/DL (8.5-10.1); CREATININE 1.03 MG/DL (0.60-1.30)
[2017-03-08 11:47] LABS: BILIRUBIN, URINE NEG (NEG); BLOOD, URINE MOD (NEG); GLUCOSE,URINE NEG (NEG); KETONE, URINE NEG (NEG); MUCUS URINE FEW /lpf (OCC); NITRITE,URINE NEG (NEG); RENAL EPITHELIAL CELLS <1 /hpf; SQUAMOUS EPITHELIAL CELL URINE <1 /hpf (0-5); URINE COLOR YELLOW (YELLW/STRAW); URINE LEUKOCYTE ESTERASE NEG (NEG)
== END 2017-03-08 15:31 ==
LOC: NEPC 09:01 → NEDAMB 15:31
DX: R31.9 Hematuria, unspecified (principal); F03.90 Unspecified dementia, unspecified severity, without behavioral disturbance, psychotic disturbance, mood disturbance, and anxiety; E78.00 Pure hypercholesterolemia, unspecified; K21.9 Gastro-esophageal reflux disease without esophagitis; I10 Essential (primary) hypertension
CPT/HCPCS: 51702; 80048; 81001; 85025; 85610; 85730

== ENCOUNTER 2017-03-09 00:04 | Emergency (ER) | payer MEDICARE, OTHER ==
[~2017-03-09] VITALS: Ht 170.2 cm; Wt 65.0 kg
[~2017-03-09 00:04] MED LIST changes: -BACT800T5 PO; +LACT10SO PO; -LACT10SO5 PO
[2017-03-09 04:15] VITALS: BP 158/84; PULSE 91; RESP 16; TEMP 98.9; O2SAT 95
[2017-03-09] MEDS ORDERED: SODIUM CHLORIDE 0.9% FLUSH 10 ML FLUSH IV FLUSH PRN (05:00)
[2017-03-09 05:20] VITALS: O2SAT 96
[2017-03-09 05:27] LABS: AUTOMATED NEUTROPHIL # 5.8 TH/MM3 (1.8-7.7); BASOPHIL % 0.5 % (0.0-2.0); EOSINOPHIL # 0.1 TH/MM3 (0-0.4); EOSINOPHIL % 0.8 % (0.0-4.0); HEMATOCRIT 36.2 % (39.0-51.0); HEMOGLOBIN 11.9 GM/DL (13.0-17.0); LYMPHOCYTE # 1.1 TH/MM3 (1.0-4.8); MEAN CELL VOLUME 96.6 FL (80.0-100.0); MEAN CORPUSCULAR HEMOGLOBIN 31.7 PG (27.0-34.0); MEAN CORPUSCULAR HGB CONC 32.8 % (32.0-36.0); MEAN PLATELET VOLUME 7.4 FL (7.0-11.0); MONO % 5.4 % (0.0-8.0); MONOCYTE # 0.4 TH/MM3 (0-0.9); NEUT % 78.3 % (16.0-70.0); PLATELET COUNT 255 TH/MM3 (150-450); RED BLOOD COUNT 3.74 MIL/MM3 (4.50-5.90); RED CELL DISTRIBUTION WIDTH 15.4 % (11.6-17.2); WHITE BLOOD COUNT 7.4 TH/MM3 (4.0-11.0)
[2017-03-09 05:47] LABS: ALBUMIN 3.6 GM/DL (3.4-5.0); ALKALINE PHOSPHATASE 80 U/L (45-117); ALT (GPT) 29 U/L (12-78); AST (GOT) 31 U/L (15-37); BICARBONATE 28.8 MEQ/L (21.0-32.0); BLOOD UREA NITROGEN 15 MG/DL (7-18); CALCIUM 8.9 MG/DL (8.5-10.1); CHLORIDE 99 MEQ/L (98-107); CREATININE 1.25 MG/DL (0.60-1.30); GLOMERULAR FILTRATION RATE 57 ML/MIN (>89); GLUCOSE,RANDOM 100 MG/DL (74-106); SODIUM (NA) 138 MEQ/L (136-145); TOTAL BILIRUBIN ADULT 0.4 MG/DL (0.2-1.0); TOTAL PROTEIN 7.7 GM/DL (6.4-8.2)
--- NOTE | 2017-03-09 07:12 | PD ---
HPI . Altered mental status Chief Complaint: Altered Mental Status Time Seen by Provider: 04:13 Travel History International Travel<30 days: No Contact w/Intl Traveler<30days: No Traveled to known affect area: No History of Present Illness HPI 71-year-old male seen yesterday in ED diagnosed with a urinary tract infection, treated with antibiotic, was sent back from detention last night secondary to possible altered mental status, possible partially treated urinary tract infection. Patient is acting as per usual, noncontributory strain secondary to his dementia. PFSH Past Medical History Narrative Medical Past medical history reviewed Anxiety: Yes Depression: Yes Cardiovascular Problems: Yes High Cholesterol: Yes Dementia: Yes Diminished Hearing: No GERD: Yes Glaucoma: Yes Genitourinary: Yes (UTI) Hypertension: Yes Psychiatric: Yes (INSOMNIA, MOOD DISORDER) Past Surgical History Surgical History: No Previous Surgery Social History Alcohol Use: No Tobacco Use: No Substance Use: No Allergies-Medications (Allergen,Severity, Reaction): Coded Allergies: No Known Allergies (Unverified Adverse Reaction, Unknown, 03/04/17) Reported Meds & Prescriptions Reported Meds & Active Scripts Active Reported Lactulose Liq (Lactulose) 10 Gm/15 Ml Soln 30 Ml PO TID Aripiprazole 20 Mg Tab 20 Mg PO DAILY@1600 Tylenol (Acetaminophen) 325 Mg Tab 650 Mg PO Q4H PRN Florastor (Saccharomyces Boulardii) 250 Mg Cap 250 Mg PO BID Melatonin 5 Mg Tab 6 Mg PO HS Atorvastatin (Atorvastatin Calcium) 20 Mg Tab 20 Mg PO HS Lisinopril 10 Mg Tab 10 Mg PO BID Metoprolol Tartrate 25 Mg Tab 25 Mg PO BID Tizanidine (Tizanidine HCl) 4 Mg Cap 4 Mg PO BID Depakote DR (Divalproex Sodium) 125 Mg Tabdr 125 Mg PO BID Namzaric (Memantine-Donepezil) 28-10 Mg Cap 1 Cap PO HS Aspirin 81 Mg Chew 81 Mg CHEW DAILY Xanax (Alprazolam) 0.5 Mg Tab 0.5 Mg PO BID Zoloft (Sertraline HCl) 25 Mg Tab 75 Mg PO HS Narrative Medication Allergies and medications reviewed Review of Systems Except as stated in HPI: all other systems reviewed are Neg (as per detention) General / Constitutional: No: Fever Eyes: No: Visual changes HENT: No: Headaches Cardiovascular: No: Chest Pain or Discomfort Respiratory: No: Shortness of Breath Gastrointestinal: No: Abdominal Pain Genitourinary: No: Dysuria Musculoskeletal: No: Pain Skin: No Rash Neurologic: No: Weakness Psychiatric: No: Depression Endocrine: No: Polydipsia Hematologic/Lymphatic: No: Easy Bruising Physical Exam Narrative GENERAL: Awake and demented, noncontributory strain. Very pleasant and cooperative SKIN: Warm and dry. Color is normal no diaphoresis cyanosis or pallor HEAD: Atraumatic. Normocephalic. EYES: Pupils equal and round. No scleral icterus. No injection or drainage. ENT: No nasal bleeding or discharge. Mucous membranes pink and moist. NECK: Trachea midline. No JVD. CARDIOVASCULAR: Regular rate and rhythm. RESPIRATORY: No accessory muscle use. Clear to auscultation. Breath sounds equal bilaterally. GASTROINTESTINAL: Abdomen soft, non-tender, nondistended. Hepatic and splenic margins not palpable. MUSCULOSKELETAL: Extremities without clubbing, cyanosis, or edema. No obvious deformities. NEUROLOGICAL: Awake and alert. No obvious deficits other than dementia PSYCHIATRIC: Patient is demented and pleasant Data Data Last Documented VS Vital Signs Date Time Temp Pulse Resp B/P (MAP) Pulse Ox O2 Delivery O2 Flow Rate FiO2 03/09/17 05:20 96 Room Air 03/09/17 04:15 98.9 91 16 158/84 (108) Orders Orders Complete Blood Count With Diff (03/09/17 04:54) Comprehensive Metabolic Panel (03/09/17 04:54) Urinalysis - C+S If Indicated (03/09/17 04:54) Iv Access Insert/Monitor (03/09/17 04:54) Ecg Monitoring (03/09/17 04:54) Oximetry (03/09/17 04:54) Sodium Chloride 0.9% Flush (Ns Flush) (03/09/17 05:00) Labs Laboratory Tests Test 03/09/17 05:15 White Blood Count 7.4 TH/MM3 Red Blood Count 3.74 MIL/MM3 Hemoglobin 11.9 GM/DL Hematocrit 36.2 % Mean Corpuscular Volume 96.6 FL Mean Corpuscular Hemoglobin 31.7 PG Mean Corpuscular Hemoglobin Concent 32.8 % Red Cell Distribution Width 15.4 % Platelet Count 255 TH/MM3 Mean Platelet Volume 7.4 FL Neutrophils (%) (Auto) 78.3 % Lymphocytes (%) (Auto) 15.0 % Monocytes (%) (Auto) 5.4 % Eosinophils (%) (Auto) 0.8 % Basophils (%) (Auto) 0.5 % Neutrophils # (Auto) 5.8 TH/MM3 Lymphocytes # (Auto) 1.1 TH/MM3 Monocytes # (Auto) 0.4 TH/MM3 Eosinophils # (Auto) 0.1 TH/MM3 Basophils # (Auto) 0.0 TH/MM3 CBC Comment DIFF FINAL Differential Comment Blood Urea Nitrogen 15 MG/DL Creatinine 1.25 MG/DL Random Glucose 100 MG/DL Total Protein 7.7 GM/DL Albumin 3.6 GM/DL Calcium Level 8.9 MG/DL Alkaline Phosphatase 80 U/L Aspartate Amino Transf (AST/SGOT) 31 U/L Alanine Aminotransferase (ALT/SGPT) 29 U/L Total Bilirubin 0.4 MG/DL Sodium Level 138 MEQ/L Potassium Level 3.1 MEQ/L Chloride Level 99 MEQ/L Carbon Dioxide Level 28.8 MEQ/L Anion Gap 10 MEQ/L Estimat Glomerular Filtration Rate 57 ML/MIN MDM Medical Decision Making Medical Screen Exam Complete: Yes Emergency Medical Condition: Yes Medical Record Reviewed: Yes Differential Diagnosis Dementia, UTI, altered mental status Narrative Course Patient is acting as per usual. Patient was seen yesterday, urine sample obtained do not represent UTI. She was transferred back from detention with potential symptoms of urinary tract infection. Awaiting urinalysis this morning Diagnosis Primary Impression: General medical exam Darrell Glover MD Mar 09, 2017 07:12
[2017-03-09 07:14] VITALS: BP 156/85; PULSE 99; RESP 18; O2SAT 95
[2017-03-09 11:25] LABS: BILIRUBIN, URINE NEG (NEG); BLOOD, URINE SMALL (NEG); GLUCOSE,URINE NEG (NEG); KETONE, URINE TRACE mg/dL (NEG); MUCUS URINE FEW /lpf (OCC); NITRITE,URINE NEG (NEG); URINE COLOR YELLOW (YELLW/STRAW); URINE LEUKOCYTE ESTERASE NEG (NEG)
--- NOTE | 2017-03-09 11:37 | PD ---
Physical Exam Date Seen by Provider: Mar 09, 2017 Time Seen by Provider: 07:00 Narrative Patient signed out to me by Dr. Glover, presents [facility] the ER from [facility] apparently for hematuria and they state that he has been more disoriented. Patient had been seen by me yesterday for hematuria, had no hematuria on last evaluation. I do see a small amount of blood in his diaper which appears to be coming from the urethra. H&H is stable. Vital signs are stable. UA did not show any signs of UTI. At this point, patient has had multiple straight catheters and Feldman catheters and I suspect that the blood may be secondary to urethral irritation from the catheterizations. I would avoid further catheterizations at this time. He does not have a UTI and he does not need further antibiotic treatment at this time. Vital signs are stable. I think that this patient at this point appears to be fairly at baseline. My plan would be to release him back to facility and he should follow up with urology there. Return for new issues as needed. Data Data Last Documented VS Vital Signs Date Time Temp Pulse Resp B/P (MAP) Pulse Ox O2 Delivery O2 Flow Rate FiO2 03/09/17 07:14 99 18 156/85 (108) 95 03/09/17 05:20 Room Air 03/09/17 04:15 98.9 Orders Orders Complete Blood Count With Diff (03/09/17 04:54) Comprehensive Metabolic Panel (03/09/17 04:54) Urinalysis - C+S If Indicated (03/09/17 04:54) Iv Access Insert/Monitor (03/09/17 04:54) Ecg Monitoring (03/09/17 04:54) Oximetry (03/09/17 04:54) Sodium Chloride 0.9% Flush (Ns Flush) (03/09/17 05:00) Diet Heart Healthy (03/09/17 Breakfast) Ed Discharge Order (03/09/17 11:32) Labs Laboratory Tests Test 03/09/17 05:15 03/09/17 11:00 White Blood Count 7.4 TH/MM3 Red Blood Count 3.74 MIL/MM3 Hemoglobin 11.9 GM/DL Hematocrit 36.2 % Mean Corpuscular Volume 96.6 FL Mean Corpuscular Hemoglobin 31.7 PG Mean Corpuscular Hemoglobin Concent 32.8 % Red Cell Distribution Width 15.4 % Platelet Count 255 TH/MM3 Mean Platelet Volume 7.4 FL Neutrophils (%) (Auto) 78.3 % Lymphocytes (%) (Auto) 15.0 % Monocytes (%) (Auto) 5.4 % Eosinophils (%) (Auto) 0.8 % Basophils (%) (Auto) 0.5 % Neutrophils # (Auto) 5.8 TH/MM3 Lymphocytes # (Auto) 1.1 TH/MM3 Monocytes # (Auto) 0.4 TH/MM3 Eosinophils # (Auto) 0.1 TH/MM3 Basophils # (Auto) 0.0 TH/MM3 CBC Comment DIFF FINAL Differential Comment Blood Urea Nitrogen 15 MG/DL Creatinine 1.25 MG/DL Random Glucose 100 MG/DL Total Protein 7.7 GM/DL Albumin 3.6 GM/DL Calcium Level 8.9 MG/DL Alkaline Phosphatase 80 U/L Aspartate Amino Transf (AST/SGOT) 31 U/L Alanine Aminotransferase (ALT/SGPT) 29 U/L Total Bilirubin 0.4 MG/DL Sodium Level 138 MEQ/L Potassium Level 3.1 MEQ/L Chloride Level 99 MEQ/L Carbon Dioxide Level 28.8 MEQ/L Anion Gap 10 MEQ/L Estimat Glomerular Filtration Rate 57 ML/MIN Urine Color YELLOW Urine Turbidity CLEAR Urine pH 5.0 Urine Specific [place] 1.019 Urine Protein TRACE mg/dL Urine Glucose (UA) NEG mg/dL Urine Ketones TRACE mg/dL Urine Occult Blood SMALL Urine Nitrite NEG Urine Bilirubin NEG Urine Urobilinogen LESS THAN 2.0 MG/DL Urine Leukocyte Esterase NEG Urine RBC 8 /hpf Urine WBC 1 /hpf Urine Mucus FEW /lpf Microscopic Urinalysis Comment CULT NOT INDICATED [facility] Medical Record Reviewed: Yes Supervised Visit with VARSHA: No HemaPrompt Test Point of Care Internal Pos. & Neg. Controls: Passed Fecal Specimen Occult Blood: Negative Diagnosis Primary Impression: General medical exam Additional Impression: Hematuria Additional Instruction: Follow-up with urology for hematuria. Return for worsening in bleeding or new symptoms as needed. Disposition: 03 DISCHARGE TO SNF Condition: Stable Maura Muller MD Mar 09, 2017 11:37
[2017-03-09 11:38] VITALS: BP 163/81
== END 2017-03-09 12:47 ==
LOC: NEPE 00:04
DX: R31.9 Hematuria, unspecified (principal); F41.9 Anxiety disorder, unspecified; F32.9 Major depressive disorder, single episode, unspecified; E78.00 Pure hypercholesterolemia, unspecified; F03.90 Unspecified dementia, unspecified severity, without behavioral disturbance, psychotic disturbance, mood disturbance, and anxiety; K21.9 Gastro-esophageal reflux disease without esophagitis; H40.9 Unspecified glaucoma; I10 Essential (primary) hypertension; F39 Unspecified mood [affective] disorder
CPT/HCPCS: 80053; 81001; 85025; 99283

== ENCOUNTER 2017-07-29 09:37 | Emergency (ER) | payer MEDICARE, OTHER ==
[~2017-07-29] VITALS: Ht 170.2 cm; Wt 60.0 kg
[~2017-07-29 09:37] MED LIST changes: -ASPI-516 CHEW; +ASPI-516 PO
[2017-07-29 09:47] VITALS: BP 107/56; PULSE 47; RESP 18; TEMP 98.2; O2SAT 96
[2017-07-29 10:16] LABS: AUTOMATED NEUTROPHIL # 2.9 TH/MM3 (1.8-7.7); BASOPHIL % 0.6 % (0.0-2.0); EOSINOPHIL # 0.2 TH/MM3 (0-0.4); EOSINOPHIL % 3.2 % (0.0-4.0); HEMATOCRIT 36.5 % (39.0-51.0); HEMOGLOBIN 11.9 GM/DL (13.0-17.0); LYMPH % 32.7 % (9.0-44.0); LYMPHOCYTE # 1.8 TH/MM3 (1.0-4.8); MEAN CELL VOLUME 93.1 FL (80.0-100.0); MEAN CORPUSCULAR HEMOGLOBIN 30.3 PG (27.0-34.0); MEAN CORPUSCULAR HGB CONC 32.5 % (32.0-36.0); MEAN PLATELET VOLUME 9.5 FL (7.0-11.0); MONO % 10.3 % (0.0-8.0); MONOCYTE # 0.6 TH/MM3 (0-0.9); NEUT % 53.2 % (16.0-70.0); PLATELET COUNT 141 TH/MM3 (150-450); RED BLOOD COUNT 3.92 MIL/MM3 (4.50-5.90); RED CELL DISTRIBUTION WIDTH 16.6 % (11.6-17.2); WHITE BLOOD COUNT 5.5 TH/MM3 (4.0-11.0)
--- NOTE | 2017-07-29 10:21 | RADRPT ---
EXAM DATE: 07/29/2017 10:13 AM EDT AGE/SEX: 72 years / Male INDICATIONS: Cough. CLINICAL DATA: This is the patient's initial encounter. Patient reports that signs and symptoms have been present for 1 day and indicates a pain score of Nonresponsive. MEDICAL/SURGICAL HISTORY: . Hypertension. Dementia. None. COMPARISON: No prior [facility] exams available for comparison. FINDINGS: Portable AP view of the chest demonstrate a normal-sized cardiac silhouette with mild calcification o f the aorta. EKG lines overlie the patient. Multiple clips overlie the midabdomen. There is underinfl ation with marked elevation of the right hemidiaphragm with likely atelectasis at the right lung base . No pleural effusion, pneumothorax, or airspace consolidation is seen. The bones and soft tissues de monstrate no acute abnormality. CONCLUSION: Underinflated with significant elevation of the right hemidiaphragm with associated atelectasis at th e right lung base. Otherwise, no definite consolidation is identified to explain the patient's cough. Electronically signed by: Jude Dixon MD 07/29/2017 10:20 AM EDT
[2017-07-29] MEDS ORDERED: METO50TA PO (10:48)
[2017-07-29] MEDS ORDERED: ZOLO50TA PO (10:48)
[2017-07-29] MEDS ORDERED: POTA10CA PO (10:48)
[2017-07-29] MEDS ORDERED: ROPI1TAB72 PO (10:48)
[2017-07-29] MEDS ORDERED: SERO25TA PO (10:48)
[2017-07-29] MEDS ORDERED: MELA3TAB52 PO (10:48)
[2017-07-29] MEDS ORDERED: FURO1TAB62 PO (10:48)
[2017-07-29] MEDS ORDERED: DIVA500T PO (10:48)
[2017-07-29] MEDS ORDERED: ROBA100S PO (10:48)
[2017-07-29 11:13] LABS: ALT (GPT) 20 U/L (12-78)
[2017-07-29 11:17] LABS: ALKALINE PHOSPHATASE 61 U/L (45-117); TOTAL BILIRUBIN ADULT 0.4 MG/DL (0.2-1.0); TOTAL PROTEIN 6.7 GM/DL (6.4-8.2); TROPONIN I LESS THAN 0.02 NG/ML (0.02-0.05)
[2017-07-29 11:23] LABS: ALBUMIN 3.5 GM/DL (3.4-5.0); AST (GOT) 23 U/L (15-37); BICARBONATE 28.6 MEQ/L (21.0-32.0); BLOOD UREA NITROGEN 21 MG/DL (7-18); CALCIUM 8.4 MG/DL (8.5-10.1); CHLORIDE 105 MEQ/L (98-107); CREATININE 1.06 MG/DL (0.60-1.30); GLOMERULAR FILTRATION RATE 68 ML/MIN (>89); GLUCOSE,RANDOM 105 MG/DL (74-106); SODIUM (NA) 143 MEQ/L (136-145)
--- NOTE | 2017-07-29 12:36 | RADRPT ---
EXAM DATE: 07/29/2017 12:06 PM EDT AGE/SEX: 72 years / Male INDICATIONS: Fall today hematoma left side of head CLINICAL DATA: This is the patient's initial encounter. Patient reports that signs and symptoms have been present for 1 day and indicates a pain score of 3/10. MEDICAL/SURGICAL HISTORY: Hypertension. None. RADIATION DOSE: 19.18 CTDI (mGy) COMPARISON: No prior exams available for comparison. TECHNIQUE: Contiguous axial images were obtained using helical multirow detector technique. The vol umetric data was post-processed with multiplanar reconstruction in oblique axial, sagittal, and coron al planes. Using automated exposure control and adjustment of the mA and/or kV according to patient s ize, radiation dose was kept as low as reasonably achievable to obtain optimal diagnostic quality scarlet ges. FINDINGS: Vertebrae: Normal vertebral body height. Alignment: There is minimal anterior subluxation of C7 on T1 likely secondary to facet hypertrophy. C2-3: The bony spinal canal is normal in size. No evidence of disc bulge or herniation. The neural foramina are bilaterally patent. C3-4: The bony spinal canal is normal in size. No evidence of disc bulge or herniation. The neural foramina are bilaterally patent. C4-5: The disc demonstrates decreased height. There is mild diffuse disc bulge and osteophytic ridgi ng causing mild impression on the thecal sac. There is uncovertebral hypertrophy. The neural foramina are grossly patent. C5-6: The disc demonstrates decreased height. There is mild diffuse disc bulge and osteophytic ridgi ng. There is left-sided facet hypertrophy. There is uncovertebral hypertrophy being worse on the left . There is some narrowing of the neural foramina being worse on the left. C6-7: The bony spinal canal is normal in size. No evidence of disc bulge or herniation. The neural foramina are bilaterally patent. There is left facet hypertrophy. C7-T1: The bony spinal canal is normal in size. No evidence of disc bulge or herniation. The neura l foramina are bilaterally patent. There is bilateral facet hypertrophy. CONCLUSION: 1. No acute bony injury is seen. 2. Degenerative change in the mid and lower cervical spine as described above. Electronically signed by: Jude Vásquez MD 07/29/2017 12:35 PM EDT
[2017-07-29 13:21] VITALS: BP 141/64; PULSE 67; RESP 18; O2SAT 96
[2017-07-29 13:46] LABS: BILIRUBIN, URINE NEG (NEG); BLOOD, URINE NEG (NEG); GLUCOSE,URINE NEG (NEG); HYALINE CAST, URINE 3 /lpf (RARE); KETONE, URINE NEG (NEG); MUCUS URINE FEW /lpf (OCC); NITRITE,URINE NEG (NEG); URINE COLOR YELLOW (YELLW/STRAW); URINE LEUKOCYTE ESTERASE NEG (NEG)
--- NOTE | 2017-07-29 15:50 | RADRPT ---
EXAM DATE: 07/29/2017 11:31 AM EDT AGE/SEX: 72 years / Male INDICATIONS: Fall today hematoma left side CLINICAL DATA: This is the patient's initial encounter. Patient reports that signs and symptoms have been present for 1 day and indicates a pain score of 3/10. MEDICAL/SURGICAL HISTORY: Hypertension. None. RADIATION DOSE: 45.79 CTDI (mGy) COMPARISON: No prior [facility] exams available for comparison. TECHNIQUE: CT of the head without contrast. Using automated exposure control and adjustment of the mA and/or kV according to patient size, radiation dose was kept as low as reasonably achievable to ob tain optimal diagnostic quality images. FINDINGS: Cerebrum: The ventricles are normal for age. Mild, symmetric cortical atrophy. No evidence of midli ne shift, mass lesion, hemorrhage or acute infarction. No extraaxial fluid collections are seen. Posterior Fossa: The cerebellum and brainstem are intact. The 4th ventricle is midline. The cerebe llopontine angle is unremarkable. Extracranial: The visualized portion of the orbits is intact. Skull: The calvaria is intact. No evidence of skull fracture. Endosteal calcification in the right frontal region. CONCLUSION: 1. Mild chronic changes with some symmetric cortical atrophy. 2. No acute intracranial process, trauma or fracture Electronically signed by: Cuate Dorantes MD 07/29/2017 3:49 PM EDT
--- NOTE | 2017-07-29 16:13 | PD ---
HPI Chief Complaint: Fall Time Seen by Provider: 09:47 Travel History International Travel<30 days: No Contact w/Intl Traveler<30days: No Traveled to known affect area: No History of Present Illness HPI Patient is a 72 year old male BIBEMS after an unwitnessed fall. Patient has dementia and is not really able to provide history. When asked if something hurt, he pointed to his right leg. He says nothing else hurts. Per EMS, long term staff said they found him on the ground. PFSH Past Medical History Anxiety: Yes Depression: Yes Cardiovascular Problems: Yes High Cholesterol: Yes Dementia: Yes Diminished Hearing: No GERD: Yes Glaucoma: Yes Genitourinary: Yes (UTI) Hypertension: Yes Psychiatric: Yes (INSOMNIA, MOOD DISORDER) Social History Alcohol Use: No Tobacco Use: No Substance Use: No Allergies-Medications (Allergen,Severity, Reaction): Coded Allergies: No Known Allergies (Unverified Adverse Reaction, Unknown, 03/04/17) Reported Meds & Prescriptions Reported Meds & Active Scripts Active Reported Zoloft (Sertraline HCl) 50 Mg Tab 75 Mg PO HS Take 1 tablet (50mg) with a 25mg tablet for a total dose of 75mg Robafen Dm 100-10 mg/5Ml (Dextromethorphan-Guaifenesin) 100 Mg-10 Mg/5 Ml Syp 10 Ml PO Q4HR PRN Potassium Chloride ER (Potassium Chloride) 10 Meq Cap 10 Meq PO DAILY Requip (Ropinirole) 1 Mg Tab 1 Mg PO TID Seroquel (Quetiapine Fumarate) 25 Mg Tab 50 Mg PO HS Lasix (Furosemide) 20 Mg Tab 20 Mg PO DAILY Melatonin 3 Mg Tab 6 Mg PO HS Metoprolol Tartrate 50 Mg Tab 50 Mg PO BID Hold if SBP less than 110 or DBP less than [address] (Divalproex Sodium) 500 Mg Tabdr 500 Mg PO HS Lactulose Liq (Lactulose) 10 Gm/15 Ml Soln 30 Gm PO TID Tylenol (Acetaminophen) 325 Mg Tab 650 Mg PO Q4H PRN Atorvastatin (Atorvastatin Calcium) 20 Mg Tab 20 Mg PO HS Lisinopril 10 Mg Tab 10 Mg PO BID Tizanidine (Tizanidine HCl) 4 Mg Cap 4 Mg PO BID Namzaric (Memantine-Donepezil) 28-10 Mg Cap 1 Cap PO HS Aspirin 81 Mg Chew 81 Mg PO DAILY Xanax (Alprazolam) 0.5 Mg Tab 0.5 Mg PO BID Zoloft (Sertraline HCl) 25 Mg Tab 75 Mg PO HS Take 1 tablet (25mg) with a 50mg tablet for a total dose of 75mg Review of Systems ROS Limitations: Other: (dementia) Physical Exam Narrative GENERAL: Awake and alert, in no acute distress. SKIN: Focused skin assessment warm/dry. Skin tear to the left arm. HEAD: Atraumatic. Normocephalic. EYES: Pupils equal and round. No scleral icterus. EOMI. ENT: Mucous membranes pink and moist. NECK: Trachea midline. No JVD. CARDIOVASCULAR: Regular rate and rhythm. No murmur appreciated. RESPIRATORY: No accessory muscle use. Clear to auscultation. Breath sounds equal bilaterally. GASTROINTESTINAL: Abdomen soft, non-tender, nondistended. MUSCULOSKELETAL: No obvious deformities. No clubbing. No cyanosis. No edema. NEUROLOGICAL: Awake and alert. No obvious cranial nerve deficits. Motor grossly within normal limits. Normal speech. PSYCHIATRIC: Appropriate mood and affect; insight and judgment normal. Data Data Last Documented VS Vital Signs Date Time Temp Pulse Resp B/P (MAP) Pulse Ox O2 Delivery O2 Flow Rate FiO2 07/29/17 13:21 67 18 141/64 (89) 96 Room Air 07/29/17 09:[address] Brain W/O Iv Contrast(Rout) (07/29/17 ) Ct Cerv Spine W/O Contrast (07/29/17 ) Complete Blood Count With Diff (07/29/17 09:47) Comprehensive Metabolic Panel (07/29/17 09:47) Electrocardiogram (07/29/17 ) Troponin I (07/29/17 09:47) Urinalysis - C+S If Indicated (07/29/17 09:47) Chest, Single Ap (07/29/17 ) Cath For Specimen (07/29/17 13:24) Labs Laboratory Tests Test 07/29/17 10:00 07/29/17 13:33 White Blood Count 5.5 TH/MM3 Red Blood Count 3.92 MIL/MM3 Hemoglobin 11.9 GM/DL Hematocrit 36.5 % Mean Corpuscular Volume 93.1 FL Mean Corpuscular Hemoglobin 30.3 PG Mean Corpuscular Hemoglobin Concent 32.5 % Red Cell Distribution Width 16.6 % Platelet Count 141 TH/MM3 Mean Platelet Volume 9.5 FL Neutrophils (%) (Auto) 53.2 % Lymphocytes (%) (Auto) 32.7 % Monocytes (%) (Auto) 10.3 % Eosinophils (%) (Auto) 3.2 % Basophils (%) (Auto) 0.6 % Neutrophils # (Auto) 2.9 TH/MM3 Lymphocytes # (Auto) 1.8 TH/MM3 Monocytes # (Auto) 0.6 TH/MM3 Eosinophils # (Auto) 0.2 TH/MM3 Basophils # (Auto) 0.0 TH/MM3 CBC Comment DIFF FINAL Differential Comment Blood Urea Nitrogen 21 MG/DL Creatinine 1.06 MG/DL Random Glucose 105 MG/DL Total Protein 6.7 GM/DL Albumin 3.5 GM/DL Calcium Level 8.4 MG/DL Alkaline Phosphatase 61 U/L Aspartate Amino Transf (AST/SGOT) 23 U/L Alanine Aminotransferase (ALT/SGPT) 20 U/L Total Bilirubin 0.4 MG/DL Sodium Level 143 MEQ/L Potassium Level 4.0 MEQ/L Chloride Level 105 MEQ/L Carbon Dioxide Level 28.6 MEQ/L Anion Gap 9 MEQ/L Estimat Glomerular Filtration Rate 68 ML/MIN Troponin I LESS THAN 0.02 NG/ML Urine Color YELLOW Urine Turbidity CLEAR Urine pH 6.0 Urine Specific [place] 1.014 Urine Protein NEG mg/dL Urine Glucose (UA) NEG mg/dL Urine Ketones NEG mg/dL Urine Occult Blood NEG Urine Nitrite NEG Urine Bilirubin NEG Urine Urobilinogen LESS THAN 2.0 MG/DL Urine Leukocyte Esterase NEG Urine RBC LESS THAN 1 /hpf Urine WBC LESS THAN 1 /hpf Urine Hyaline Casts 3 /lpf Urine Mucus FEW /lpf Microscopic Urinalysis Comment CULT NOT INDICATED MDM Medical Decision Making Medical Screen Exam Complete: Yes Emergency Medical Condition: Yes Medical Record Reviewed: Yes Differential Diagnosis head injury vs neck injury vs UTI vs electrolyte abnormalities Narrative Course Patient is a 72 year old male who comes in after a fall. He is able to provide any history. Patient states his leg hurt, however, on exam there is no tenderness or pain to palpation. CT head and C-spine show no acute abnormalities. Labs show no acute abnormalities. Patient to be discharged back to his facility. Diagnosis Primary Impression: Fall Qualified Codes: W19.XXXA - Unspecified fall, initial encounter Patient Instructions: Fall Prevention (ED), General Instructions Additional Instructions: Follow up with the primary care doctor. Return to the ED as needed for any worsening symptoms. Disposition: 01 DISCHARGE HOME Condition: Stable Sherry Phillip MD Jul 29, 2017 16:13
--- NOTE | 2017-07-30 15:29 | EKG ---
Date Performed: 07/29/2017 Time Performed: 07:41:56 PTAGE: 72 years EKG: Sinus bradycardia with marked sinus arrhythmia Nonspecific T-wave abnormality Borderline EC G PREVIOUS TRACING 09/02/16 Since the prior tracing, there has been some variation in the anterola teral T-wave changes, but no other significant serial change. DOCTOR: Joycelyn Alves Interpretating Date/Time 07/30/2017 15:29:10
== END 2017-07-29 16:45 | disposition home or self-care (01) ==
LOC: NEPE 09:37
DX: M79.604 Pain in right leg (principal); F03.90 Unspecified dementia, unspecified severity, without behavioral disturbance, psychotic disturbance, mood disturbance, and anxiety; E78.00 Pure hypercholesterolemia, unspecified; I10 Essential (primary) hypertension; W19.XXXA Unspecified fall, initial encounter
CPT/HCPCS: 70450; 71045; 72125; 80053; 81001; 84484; 85025; 93005; 99285; P9612

== ENCOUNTER 2018-01-27 11:10 | Inpatient (IN) ==
[2018-01-27] MEDS ORDERED: Sod Chloride 0.9% Inj 1,000 ML IV.SIG SCH ×2 (12:00→13:00)
[2018-01-27 12:24] LABS: Baso % (Auto) 0.3 % (0.0-2.0); Eos % (Auto) 0.5 % (0.0-4.0); Hematocrit 41.5 % (39.0-51.0); Hemoglobin 13.3 gm/dL (13.0-17.0); Lymph # (Auto) 1.5 th/mm3 (1.0-4.8); Lymph % (Auto) 22.3 % (9.0-44.0); Mean Corpuscular HGB Conc 32.1 % (32.0-36.0); Mean Platelet Volume 11.3 fL (7.0-11.0); Mono # (Auto) 0.5 th/mm3 (0.0-0.9); Mono % (Auto) 6.8 % (0.0-8.0); Neut # (Auto) 4.7 th/mm3 (1.8-7.7); Neut % (Auto) 70.1 % (16.0-70.0); Platelet Count 101 th/mm3 (150-450); Red Blood Count 4.03 mil/mm3 (4.50-5.90); Red Cell Distribution Width 18.8 % (11.6-17.2); White Blood Count 6.7 th/mm3 (4.0-11.0)
[2018-01-27 12:36] LABS: Activated Partial Thrombo Time 24.7 sec (23.4-31.7); Prothrombin Time 10.5 sec (9.8-11.6)
--- NOTE | 2018-01-27 12:53 | CT ---
EXAM DATE: 01/27/2018 12:40 PM EST AGE/SEX: 72 years / Male INDICATIONS: Altered mental status. CLINICAL DATA: This is the patient's initial encounter. Patient reports that signs and symptoms have been present for 1 day and indicates a pain score of Nonresponsive. MEDICAL/SURGICAL HISTORY: Dementia. Seizures. Hypertension. None. RADIATION DOSE: 43.58 CTDI (mGy) COMPARISON: [facility] [place] BRAIN [place]/O CONTRAST, 07/29/2017. . TECHNIQUE: CT of the head without contrast. Using automated exposure control and adjustment of the mA and/or kV according to patient size, radiation dose was kept as low as reasonably achievable to ob tain optimal diagnostic quality images. DICOM format image data is available electronically for revi ew and comparison. FINDINGS: Cerebrum: The ventricles are normal for age. Stable bilateral cortical atrophy and stable chronic ch anges. No evidence of midline shift, mass lesion, hemorrhage or acute infarction. No extraaxial flu id collections are seen. Posterior Fossa: The cerebellum and brainstem are intact. The 4th ventricle is midline. The cerebe llopontine angle is unremarkable. Extracranial: The visualized portion of the orbits is intact. Skull: The calvaria is intact. No evidence of skull fracture. No significant change compared to the prior exam. CONCLUSION: 1. No focal or acute intracranial hemorrhage. 2. Stable CT scan of the brain compared to the prior study with stable bilateral cortical atrophy. . Electronically signed by: Melo Mcknight MD 01/27/2018 12:52 PM EST
--- NOTE | 2018-01-27 12:54 | XR ---
EXAM DATE: 01/27/2018 12:43 PM EST AGE/SEX: 72 years / Male INDICATIONS: Cough. CLINICAL DATA: This is the patient's initial encounter. Patient reports that signs and symptoms have been present for 1 day and indicates a pain score of Nonresponsive. MEDICAL/SURGICAL HISTORY: Hypertension. Non-responsive. COMPAR[place] [facility] [place] SINGLE AP, 07/29/2017. . FINDINGS: There continues to be elevation right hemidiaphragm with some atelectasis in the right lung base. The left lung remains grossly clear. The heart size is stable. No significant pleural effusions. The bon y structures are stable. No change compared to the prior examination. CONCLUSION: 1. Stable elevation right hemidiaphragm with some atelectasis in the right lung base. 2. No new or acute infiltrates. Electronically signed by: Melo Mcknight MD 01/27/2018 12:53 PM EST
[2018-01-27 13:15] LABS: Amorphous Sediment,Urine Few /hpf; Bacteria,Urine Rare /hpf; Bilirubin,Urine Negative (Negative); Clarity,Urine Cloudy (Clear); Color,Urine Amber (Yellw/Straw); Glucose,Urine (UA) 50 mg/dL (Negative); Hyaline Casts,Urine 48 /lpf (0-3); Leukocyte Esterase,Urine Negative (Negative); Mucus,Urine Moderate /lpf (Occasional); Nitrite,Urine Negative (Negative); Specific Gravity,Urine 1.023 (1.002-1.035); Squamous Epithelial Cell,Urine 4 /hpf (0-5)
[2018-01-27 13:51] LABS: Alanine Aminotransferase 32 U/L (12-78); Albumin 2.8 g/dL (3.4-5.0); Anion Gap 6 meq/L (5-15); Aspartate Aminotransferase 30 U/L (15-37); Blood Urea Nitrogen 106 mg/dL (7-18); Calcium 7.3 mg/dL (8.5-10.1); Carbon Dioxide 25.4 meq/L (21.0-32.0); Chloride 133 meq/L (98-107); Glomerular Filtration Rate 12 mL/min (>89); Glucose,Random 100 mg/dL (74-106); Magnesium 3.3 mg/dL (1.5-2.5)
[2018-01-27 13:53] LABS: Alkaline Phosphatase 64 U/L (45-117); Creatine Kinase 119 U/L (39-308); Total Protein 6.5 g/dL (6.4-8.2)
[2018-01-27 13:59] LABS: Potassium 5.3 meq/L (3.5-5.1)
[2018-01-27 14:01] LABS: Sodium 164 meq/L (136-145)
--- NOTE | 2018-01-27 14:16 | ED ---
HPI General Chief complaint: Syncope Stated complaint: Syncope Time Seen by Provider: 01/27/18 11:53 Source: EMS Mode of arrival: EMS Limitations: altered mental status History of Present Illness HPI narrative: Patient is a 72-year-old male [facility] his [facility] due to altered mental status. Per EMS, patient was observed to grab his leg and then pass out at the [facility]. Patient has baseline dementia, currently is unable to provide any history. Related Data Allergies Allergy/AdvReac Type Severity Reaction Status Date / Time No Known Allergies Unknown Uncoded 03/04/17 09:23 Review of Systems ROS Unobtainable ROS Unobtainable: unobtainable due to mental status PMFSH Medical History Medical History Dementia (Acute) GERD (gastroesophageal reflux disease) (Acute) HTN (hypertension) (Acute) Seizure (Acute) Social History Social History Smoking Status: Refused to answer How Often Do You Have a Drink Containing Alcohol: Unable to Obtain Recent Travel in [facility] [place] within the Last 8 Weeks: No Recent Out of Country Travel within the Last 8 Weeks: No Immunization History Tetanus Immunization: Unsure Exam Narrative Exam Narrative: GENERAL: Awake and alert, in no acute distress, however he is uncooperative and very confused. SKIN: Focused skin assessment warm/dry. No wounds or signs of infection. HEAD: Atraumatic. Normocephalic. EYES: Pupils equal and round and reactive. No scleral icterus. Extraocular movements intact. ENT: Mucous membranes dry NECK: Trachea midline. No JVD. CARDIOVASCULAR: Regular rate and rhythm. No murmur appreciated. RESPIRATORY: No accessory muscle use. Clear to auscultation. Breath sounds equal bilaterally. GASTROINTESTINAL: Abdomen soft, non-tender, nondistended. MUSCULOSKELETAL: No obvious deformities. No clubbing. No cyanosis. No edema. NEUROLOGICAL: Awake and alert, but does not answer any questions.. No obvious cranial nerve deficits. Motor grossly within normal limits. Course Initial Documented Vital Signs Pulse Rate 73 01/27/18 11:21 Respiratory Rate 18 01/27/18 11:21 Blood Pressure 85/51 L 01/27/18 11:21 Pulse Oximetry 97 01/27/18 11:21 Last Documented Vital Signs Temperature 97.8 F 01/27/18 11:36 Pulse Rate 75 01/27/18 13:37 Respiratory Rate 19 01/27/18 13:37 Blood Pressure 100/54 L 01/27/18 13:37 Pulse Oximetry 95 01/27/18 12:11 Medical Decision Making MDM Narrative Medical decision making narrative: Patient is a 72-year-old male brought in by EMS after an apparent syncopal episode. Patient is demented at baseline and has altered mental status today, unable to provide any history. IV established , labs sent. Labs concerning for a sodium of 164. Patient was hypotensive on arrival. Given 2 L of fluid. After each liter, and blood pressure improved, however he did drop again. Creatinine is elevated with an acute kidney injury. Urinalysis is concerning for possible UTI. Patient given a dose of Rocephin. CT head performed shows no acute abnormalities. Chest x-ray performed shows no acute abnormalities. Patient to be admitted for further management. Medical Screen Exam Complete: Yes Emergency Medical Condition: Yes Differential Diagnosis Differential Diagnosis: UTI versus CVA versus dehydration versus electrolyte abnormality Medical Records Medical records reviewed: Yes I reviewed the patient's medical records. Lab Data Lab results reviewed: Yes I reviewed the patient's lab results. Result diagrams: 01/27/18 11:40 01/27/18 13:10 Lab Results 01/27/18 01/27/18 01/27/18 Range/Units 11:40 11:40 11:58 WBC 6.7 (4.0-11.0) th/mm3 RBC 4.03 L (4.50-5.90) mil/mm3 Hgb 13.3 (13.0-17.0) gm/dL Hct 41.5 (39.0-51.0) % MCV 103.0 H (80.0-100.0) fL MCH 33.0 (27.0-34.0) pg MCHC 32.1 (32.0-36.0) % RDW 18.8 H (11.6-17.2) % Plt Count 101 L (150-450) th/mm3 MPV 11.3 H (7.0-11.0) fL Neut % (Auto) 70.1 H (16.0-70.0) % Lymph % (Auto) 22.3 (9.0-44.0) % [place] % (Auto) 6.8 (0.0-8.0) % Eos % (Auto) 0.5 (0.0-4.0) % Baso % (Auto) 0.3 (0.0-2.0) % Neut # (Auto) 4.7 (1.8-7.7) th/mm3 Lymph # (Auto) 1.5 (1.0-4.8) th/mm3 [place] # (Auto) 0.5 (0.0-0.9) th/mm3 Eos # (Auto) 0.0 (0.0-0.4) th/mm3 Baso # (Auto) 0.0 (0.0-0.2) th/mm3 WBC Differential . Differential Comment Auto diff final PT 10.5 (9.8-11.6) sec INR 1.0 Ratio APTT 24.7 (23.4-31.7) sec Sodium (136-145) meq/L Potassium (3.5-5.1) meq/L Chloride (98-107) meq/L Carbon Dioxide (21.0-32.0) meq/L Anion Gap (5-15) meq/L BUN (7-18) mg/dL Creatinine (0.60-1.30) mg/dL Estimated GFR (>89) mL/min POC Glucose 158 H (68-110) mg/dl Random Glucose (74-106) mg/dL Lactic Acid (0.4-2.0) mmol/L Calcium (8.5-10.1) mg/dL Calcium Adj for Albumin (8.5-10.1) mg/dL Magnesium (1.5-2.5) mg/dL Total Bilirubin (0.2-1.0) mg/dL AST (15-37) U/L ALT (12-78) U/L Alkaline Phosphatase (45-117) U/L Total Creatine Kinase (39-308) U/L Troponin I (0.02-0.05) ng/mL Total Protein (6.4-8.2) g/dL Albumin (3.4-5.0) g/dL Urine Color (Yellw/Straw) Urine Clarity (Clear) Urine pH (5.0-8.5) Ur Specific [place] (1.002-1.035) Urine Protein (Neg-Trace) mg/dL Urine Glucose (UA) (Negative) mg/dL Urine Ketones (Negative) mg/dL Urine Occult Blood (Negative) Urine Nitrate (Negative) Urine Bilirubin (Negative) Urine Urobilinogen (Less than 2) mg/dL Ur Leukocyte Esterase (Negative) Urine RBC (0-3) /hpf Urine WBC (0-5) /hpf Ur Squamous Epith Cells (0-5) /hpf Amorphous Sediment (None) /hpf Urine Bacteria (None) /hpf Hyaline Casts (0-3) /lpf Urine Mucus (Occasional) /lpf Micro UA Comment Ur Microscopic Review Urine Culture Comments 01/27/18 01/27/18 01/27/18 Range/Units 12:45 13:10 13:27 WBC (4.0-11.0) th/mm3 RBC (4.50-5.90) mil/mm3 Hgb (13.0-17.0) gm/dL Hct (39.0-51.0) % MCV (80.0-100.0) fL MCH (27.0-34.0) pg MCHC (32.0-36.0) % RDW (11.6-17.2) % Plt Count (150-450) th/mm3 MPV (7.0-11.0) fL Neut % (Auto) (16.0-70.0) % Lymph % (Auto) (9.0-44.0) % [place] % (Auto) (0.0-8.0) % Eos % (Auto) (0.0-4.0) % Baso % (Auto) (0.0-2.0) % Neut # (Auto) (1.8-7.7) th/mm3 Lymph # (Auto) (1.0-4.8) th/mm3 [place] # (Auto) (0.0-0.9) th/mm3 Eos # (Auto) (0.0-0.4) th/mm3 Baso # (Auto) (0.0-0.2) th/mm3 WBC Differential Differential Comment PT (9.8-11.6) sec INR Ratio APTT (23.4-31.7) sec Sodium 164 H* (136-145) meq/L Potassium 5.3 H (3.5-5.1) meq/L Chloride 133 H (98-107) meq/L Carbon Dioxide 25.4 (21.0-32.0) meq/L Anion Gap 6 (5-15) meq/L BUN 106 H (7-18) mg/dL Creatinine 4.92 H (0.60-1.30) mg/dL Estimated GFR 12 L (>89) mL/min POC Glucose (68-110) mg/dl Random Glucose 100 (74-106) mg/dL Lactic Acid 1.7 (0.4-2.0) mmol/L Calcium 7.3 L* (8.5-10.1) mg/dL Calcium Adj for Albumin 8.3 L (8.5-10.1) mg/dL Magnesium 3.3 H (1.5-2.5) mg/dL Total Bilirubin 0.2 (0.2-1.0) mg/dL AST 30 (15-37) U/L ALT 32 (12-78) U/L Alkaline Phosphatase 64 (45-117) U/L Total Creatine Kinase 119 (39-308) U/L Troponin I Less than 0.02 L (0.02-0.05) ng/mL Total Protein 6.5 (6.4-8.2) g/dL Albumin 2.8 L (3.4-5.0) g/dL Urine Color [place] (Yellw/Straw) Urine Clarity Cloudy H (Clear) Urine pH 5.0 (5.0-8.5) Ur Specific [place] 1.023 (1.002-1.035) Urine Protein 100 H (Neg-Trace) mg/dL Urine Glucose (UA) 50 (Negative) mg/dL Urine Ketones Trace H (Negative) mg/dL Urine Occult Blood Negative (Negative) Urine Nitrate Negative (Negative) Urine Bilirubin Negative (Negative) Urine Urobilinogen Less than 2 (Less than 2) mg/dL Ur Leukocyte Esterase Negative (Negative) Urine RBC 2 (0-3) /hpf Urine WBC 4 (0-5) /hpf Ur Squamous Epith Cells 4 (0-5) /hpf Amorphous Sediment Few H (None) /hpf Urine Bacteria Rare H (None) /hpf Hyaline Casts 48 (0-3) /lpf Urine Mucus Moderate H (Occasional) /lpf Micro UA Comment Cath-culture ind Ur Microscopic Review Not Reportable Urine Culture Comments Cath-cult indicated Imaging Data Radiologist's impression: Chest X-Ray 01/27/18 11:54 CONCLUSION: 1. Stable elevation right hemidiaphragm with some atelectasis in the right lung base. 2. No new or acute infiltrates. Head CT 01/27/18 11:54 CONCLUSION: 1. No focal or acute intracranial hemorrhage. 2. Stable CT scan of the brain compared to the prior study with stable bilateral cortical atrophy. . ECG Data EKG Prior to Arrival: No Attestation: I personally reviewed and interpreted this ECG as follows: Interpretation: ECG shows normal sinus rhythm at a rate of 70, no ST elevation or depression, normal intervals Discharge Plan Discharge Disposition Patient Disposition: ED Admit(ED Internal Use Only) Discharge Condition Condition: Stable Discharge Order Discharge Orders: ED Use Only Admit Order (Routine); Ordered 01/27/18 Ordered By: Sherry Phillip Discharge Details Diagnosis: Dehydration, Hypernatremia, GLADIS (acute kidney injury), Acute UTI Physicians Team ED Provider: Sherry Phillip Primary Care Provider: UNKNOWN, Attending Provider: Yan Phillips Discharge Interventions Interventions: Vital Signs Last Done: 01/27/18 13:37 Status ED Status: Admitted Patient
[2018-01-27] MEDS ORDERED: Sod Chloride 0.9% Inj 1,000 ML IV.CONT SCH (14:30)
--- NOTE | 2018-01-27 14:58 | ECG ---
Date Performed: 01/27/2018 Time Performed: 11:51:03 PTAGE: 72 years EKG: Sinus rhythm WITH SINUS ARRHYTHMIA NONSPECIFIC T-WAVE ABNORMALITY BORDERLINE ECG I cannot compare to prior EKG as it is not present. PREVIOUS TRACING : 07/29/2017 07.41 DOCTOR: Abhilash Talley Interpretating Date/Time 01/27/2018 14:57:36
--- NOTE | 2018-01-27 17:58 | P.HPCC ---
History of Present Illness Service: Critical care medicine Primary Care Physician: UNKNOWN Chief Complaint: altered mental status History of Present Illness: 72yM resident of SNF presents with altered mental status. found to have Na 167, severe dehydration. no fever, chills. unable to participate in history. ROS unobtainable. by physical exam appears profoundly dehydrated and malnourished. Cr > 4 and appears pre-renal based on SG 1.025 and BUN/Cr ratio. Inpatient Certification: I certify that the inpatient services were ordered in accordance with Medicare regulations governing the order. This includes certification that hospital inpatient services are reasonable and necessary and in the case of services not specified as inpatient-only under 42 CFR 419.22(n), that they are appropriately provided as inpatient services in accordance to with the 2-midnight benchmark under 43 CFR 412.3(e) Estimated Total Length of Stay (Days): 7 Plans for Post Hospital Care: Not yet determined Review of Systems unobtainable due to mental status PMFSH - History History Provided By: Medical Record - Medical / Surgical Hx Neg / Unobtainable Medical Problems Denied: Unable to Obtain Surgical History: Unable to Obtain - Medical History Medical History: Medical History (Last Reviewed 01/27/18 @ 21:18 by Yan Phillips MD) Dementia GERD (gastroesophageal reflux disease) HTN (hypertension) Seizure - Family History Family History: Family History (Last Updated 01/27/18 @ 21:18 by Yan Phillips MD) Other Family history non-contributory - Social History I have reviewed the patient's Social History: Yes - Tobacco History Smoking Status: Unknown if ever smoked - Alcohol History How Often Do You Have a Drink Containing Alcohol: Unable to Obtain - Travel History Recent Travel in the [place] Within the Last 8 Weeks: No Recent Travel Out of the Country Within the Last 8 Weeks: No - Immunization History Tetanus Immunization: Unable to Assess Hx Influenza Vaccine This Season: Unable to Assess Medications and Allergies Active Medications: Active Medications Sodium Chloride (Ns Inj) 1,000 mls @ 150 mls/hr IV.CONT .[id number] [facility] Last Admin: 01/27/18 14:32 Dose: 150 mls/hr Sodium Chloride (Ns Flush) 2 ml IV.FLUSH PRN PRN PRN Reason: FLUSH AFTER USING IV ACCESS Allergies Allergy/AdvReac Type Severity Reaction Status Date / Time No Known Allergies Unknown Uncoded 03/04/17 09:23 Home Medications Medication Instructions Recorded Confirmed Type acetaminophen [Tylenol] 650 mg PO Q4H PRN 01/27/18 01/27/18 History alprazolam [Xanax] 0.5 mg PO DAILY 01/27/18 01/27/18 History aspirin 81 mg PO DAILY 01/27/18 01/27/18 History atorvastatin 20 mg PO HS 01/27/18 01/27/18 History lisinopril 10 mg PO BID 01/27/18 01/27/18 History melatonin 3 mg PO HS 01/27/18 01/27/18 History memantine-donepezil [Namzaric] 1 cap PO HS 01/27/18 01/27/18 History metoprolol tartrate 50 mg PO BID 01/27/18 01/27/18 History potassium chloride 10 meq PO DAILY 01/27/18 01/27/18 History quetiapine [Seroquel] 50 mg PO HS 01/27/18 01/27/18 History ropinirole [Requip] 3 mg PO TID 01/27/18 01/27/18 History sertraline [Zoloft] 75 mg PO HS 01/27/18 01/27/18 History sertraline [Zoloft] 75 mg PO HS 01/27/18 01/27/18 History tizanidine 4 mg PO BID 01/27/18 01/27/18 History Results - Labs CBC & Chem 7: 01/27/18 11:40 01/27/18 17:00 Labs: Short CBC 01/27/18 Range/Units 11:40 WBC 6.7 (4.0-11.0) th/mm3 Hgb 13.3 (13.0-17.0) gm/dL Hct 41.5 (39.0-51.0) % Plt Count 101 L (150-450) th/mm3 BMP 01/27/18 13:10 Sodium 164 H* Potassium 5.3 H Chloride 133 H Carbon Dioxide 25.4 BUN 106 H Creatinine 4.92 H Calcium 7.3 L* Cardiac Enzymes 01/27/18 Range/Units 13:10 Total Creatine Kinase 119 (39-308) U/L Troponin I Less than 0.02 L (0.02-0.05) ng/mL Liver Function 01/27/18 Range/Units 13:10 Total Bilirubin 0.2 (0.2-1.0) mg/dL AST 30 (15-37) U/L ALT 32 (12-78) U/L Alkaline Phosphatase 64 (45-117) U/L Albumin 2.8 L (3.4-5.0) g/dL Urine 01/27/18 Range/Units 12:45 Urine Color [place] (Yellw/Straw) Urine Clarity Cloudy H (Clear) Urine pH 5.0 (5.0-8.5) Ur Specific [place] 1.023 (1.002-1.035) Urine Protein 100 H (Neg-Trace) mg/dL Urine Glucose (UA) 50 (Negative) mg/dL - Imaging Impressions Chest X-Ray 01/27/18 11:54 CONCLUSION: 1. Stable elevation right hemidiaphragm with some atelectasis in the right lung base. 2. No new or acute infiltrates. Head CT 01/27/18 11:54 CONCLUSION: 1. No focal or acute intracranial hemorrhage. 2. Stable CT scan of the brain compared to the prior study with stable bilateral cortical atrophy. . Exam Vital signs: Vital Signs 01/27/18 11:21 01/27/18 11:36 01/27/18 12:09 Temperature 36.6 C Pulse Rate 73 70 Respiratory Rate 18 Blood Pressure 85/51 L Pulse Oximetry 97 01/27/18 12:11 01/27/18 12:45 01/27/18 13:37 Temperature Pulse Rate 80 75 Respiratory Rate 20 19 Blood Pressure 90/49 L 100/54 L Pulse Oximetry 95 96 01/27/18 14:00 01/27/18 14:30 01/27/18 15:00 Temperature Pulse Rate 74 74 74 Respiratory Rate 19 17 17 Blood Pressure 97/50 L 105/51 L 109/79 Pulse Oximetry 96 95 97 01/27/18 16:00 Temperature Pulse Rate 75 Respiratory Rate 18 Blood Pressure 127/59 L Pulse Oximetry 97 Intake & Output 01/26/18 01/27/18 01/27/18 18:59 06:59 18:59 Intake Total 2099 Balance 2099 Weight 72.575 kg Intake: IV 2099 NS Inj 1,000 ML @ 1000 mls/hr 1999 IV.SIG BOLUS JANNETH Rx#:[id number] Rocephin Inj 1,000 MG In NS Inj 100 / 100 100 ML @ 200 mls/hr IV.SIG ONCE ONE Rx#:[id number] Narrative: gen: frail elderly male, lying in bed, obtunded but protecting airway heent: nc. at. perrl. mucous membranes dry neck: no jvd. trachea midline. chest: equal chest rise. room air. cv: tachycardic rate, regular rhythm. sinus. abd: soft, nt, nd. no guarding. extr: no edema. poor skin turgor. distal pulses 2+ neuro: RASS -3. vigorous cough and gag. protects airway. does not follow commands. moves all extremities. Caprini VTE Risk Assessment Caprini VTE Risk Assessment: Moderate/High Risk (score >= 2) Caprini Risk Assessment Model: Point Value = 1 Point Value = 2 Point Value = 3 Point Value = 5 Age 41-60 Minor surgery BMI > 25 kg/m2 Swollen legs Varicose veins or History of unexplained or recurrent spontaneous Oral contraceptives or hormone replacement Sepsis (< 1 month) Serious lung disease, including pneumonia (< 1 month) Abnormal pulmonary function Acute myocardial infarction Congestive heart failure (< 1 month) History of inflammatory bowel disease Medical patient at bed rest Age 61-74 Arthroscopic surgery Major open surgery (> 45 min) Laparoscopic surgery (> 45 min) Malignancy Confined to bed (> 72 hours) Immobilizing plaster cast Central venous access Age >= 75 History of VTE Family history of VTE Factor V Leiden Prothrombin [id number] Lupus anticoagulant Anticardiolipin antibodies Elevated serum homocysteine Heparin-induced thrombocytopenia Other congenital or acquired thrombophilia Stroke (< 1 month) Elective arthroplasty Hip, pelvis, or leg fracture Acute spinal cord injury (< 1 month) Prophylaxis Regimen: Total Risk Factor Score Risk Level Prophylaxis Regimen 0-1 Low Early ambulation 2 Moderate Order ONE of the following: *Sequential Compression Device (SCD) *Heparin 5000 units SQ BID 3-4 Higher Order ONE of the following medications: *Heparin 5000 units SQ TID *Enoxaparin/Lovenox 40 mg SQ daily (WT < 150 kg, CrCl > 30 mL/min) *Enoxaparin/Lovenox 30 mg SQ daily (WT < 150 kg, CrCl > 10-29 mL/min) *Enoxaparin/Lovenox 30 mg SQ BID (WT < 150 kg, CrCl > 30 mL/min) AND/OR *Sequential Compression Device (SCD) 5 or more Highest Order ONE of the following medications: *Heparin 5000 units SQ TID (Preferred with Epidurals) *Enoxaparin/Lovenox 40 mg SQ daily (WT < 150 kg, CrCl > 30 mL/min) *Enoxaparin/Lovenox 30 mg SQ daily (WT < 150 kg, CrCl > 10-29 mL/min) *Enoxaparin/Lovenox 30 mg SQ BID (WT < 150 kg, CrCl > 30 mL/min) AND *Sequential Compression Device (SCD) Assessment and Plan - Assessment and Plan Plan: Assessment: 72yM with evidence of profound dehydration leading to life- threatening hypernatremia and acute kidney injury. admit to ICU. gently add back free water in attempt to slowly lower sodium. over-correction can lead to cerebral edema. critically ill. Active problems: life-threatening hypernatremia severe acute metabolic encephalopathy severe dehydration severe acute kidney injury Uremia Plan: admit to ICU start resuscitation with NS @ 150cc/hr. may be forced to change to 1/2 NS if sodium not correcting appropriately strict i/os serial straight cath serial sodiums daily bmp, mg, phos daily cbc no infectious etiology suspected protecting airway- close neuro checks avoid long-acting sedatives free water deficit: 7L scds, sqh, pepcid. npo until mental status improves admit to ICU. critically ill. Critical care time: 38 minutes, exclusive of separately billable procedures. H&P: Quality - VTE Deep Vein Thrombosis/Pulmonary Embolism Present on Admission: No
[2018-01-27] MEDS ORDERED: Acetaminophen 325 MG Tablet PO PRN (18:26)
[2018-01-27] MEDS ORDERED: Labetalol HCl Inj 100 MG/20 ML Vial IV.PUSH PRN (18:26)
[2018-01-27] MEDS ORDERED: hydrALAZINE HCl Inj 20 MG/ML Vial IV.PUSH PRN (18:26)
[2018-01-27] MEDS ORDERED: Bisacodyl 10 MG Supp RECTAL PRN (18:26)
[2018-01-27 18:39] LABS: Calcium 7.4 mg/dL (8.5-10.1); Carbon Dioxide 25.8 meq/L (21.0-32.0); Potassium 4.7 meq/L (3.5-5.1)
[2018-01-27 18:48] LABS: Albumin 2.9 g/dL (3.4-5.0); Calcium-Albumin Corrected 8.3 mg/dL (8.5-10.1)
--- NOTE | 2018-01-27 19:17 | US ---
EXAM DATE: 01/27/2018 7:10 PM EST AGE/SEX: 72 years / Male INDICATIONS: Increased BUN and Creatinine. CLINICAL DATA: This is the patient's initial encounter. Patient reports that signs and symptoms have been present for 1 day and indicates a pain score of Nonresponsive. MEDICAL/SURGICAL HISTORY: Dementia. Gastroesophageal reflux disease. Hypertension. Seizure. None. COMPARISON: No prior exams available for comparison. MEASUREMENTS: Right Kidney:__10.6 x 5.7 x cm Left Kidney:__10.8 x 6.9 x 5.8 cm FINDINGS: Right Kidney: No mass or hydronephrosis. Normal echogenicity. Multiple cysts are seen. Largest is see n in the lower pole measuring 4.4 cm. Left Kidney: No mass or hydronephrosis. Normal echogenicity. Multiple cysts are seen. Largest is seen in the upper pole measuring 5.0 cm Bladder: Layering debris in the urinary bladder. Other: None. CONCLUSION: 1. Bilateral renal cysts. 2. No hydronephrosis. 3. Debris within the urinary bladder, correlation with urinalysis recommended. Electronically signed by: Zaki Lopez MD 01/27/2018 7:16 PM EST
[2018-01-27] MEDS: Sodium Chloride 0.45 % Inj 1,000 ML IV.CONT SCH (19:45)
[2018-01-27] MEDS: Heparin - SQ 10,000 UNITS/ML Vial SQ SCH (22:20)
[2018-01-27] MEDS: Polyethylene Glycol 3350 17 GM Packet PO SCH (22:21)
[2018-01-27] MEDS: Senna/Docusate Sodium 8.6/50 MG Tablet PO SCH (22:21)
[2018-01-28] MEDS: Dextrose 50% in Water 50 ML Vial IV.PUSH PRN ×2 (00:13→02:17)
[2018-01-28] MEDS: Insulin NovoLIN Regular Correctional Sugar Inj SQ SCH ×5 (00:28→23:27)
[2018-01-28 00:45] LABS: Calcium 7.5 mg/dL (8.5-10.1); Carbon Dioxide 25.2 meq/L (21.0-32.0); Magnesium 2.9 mg/dL (1.5-2.5); Phosphorus 2.6 mg/dL (2.5-4.9); Potassium 4.4 meq/L (3.5-5.1)
[2018-01-28] MEDS: Chlorhexidine Gluconate 2% 1 Pack (2 Cloths) TOPICAL SCH (03:47)
[2018-01-28] MEDS: Sodium Chloride 0.45 % Inj 1,000 ML IV.CONT SCH (03:47)
[2018-01-28] MEDS ORDERED: Chlorhexidine Gluconate 2% 1 Pack (2 Cloths) TOPICAL PRN (04:00)
[2018-01-28] MEDS: Dextrose 5% in Water Inj 1,000 ML IV.CONT SCH ×2 (05:00→15:00)
[2018-01-28] MEDS: Heparin - SQ 10,000 UNITS/ML Vial SQ SCH ×3 (05:23→22:21)
[2018-01-28 06:06] LABS: Baso % (Auto) 0.4 % (0.0-2.0); Eos # (Auto) 0.2 th/mm3 (0.0-0.4); Eos % (Auto) 2.9 % (0.0-4.0); Hematocrit 39.6 % (39.0-51.0); Lymph # (Auto) 1.7 th/mm3 (1.0-4.8); Mean Corpuscular HGB Conc 32.8 % (32.0-36.0); Mean Corpuscular Hemoglobin 32.7 pg (27.0-34.0); Mean Corpuscular Volume 99.5 fL (80.0-100.0); Mean Platelet Volume 10.7 fL (7.0-11.0); Mono # (Auto) 0.5 th/mm3 (0.0-0.9); Mono % (Auto) 7.9 % (0.0-8.0); Neut # (Auto) 4.1 th/mm3 (1.8-7.7); Neut % (Auto) 62.8 % (16.0-70.0); Platelet Count 87 th/mm3 (150-450); Red Blood Count 3.98 mil/mm3 (4.50-5.90); White Blood Count 6.5 th/mm3 (4.0-11.0)
[2018-01-28 07:56] LABS: Eosinophils 3 % (0-4); Lymphocytes 31 % (9-44); Monocytes 5 % (0-8); Myelocytes 2 % (0-0); Platelet Morphology Normal (Normal)
[2018-01-28] MEDS: Senna/Docusate Sodium 8.6/50 MG Tablet PO SCH ×2 (09:57→20:05)
[2018-01-28] MEDS: Polyethylene Glycol 3350 17 GM Packet PO SCH ×2 (09:57→20:05)
--- NOTE | 2018-01-28 14:41 | P.CONPAL ---
Consult Service: Palliative Care Requesting Physician: Yan Phillips Reason for Consult: a. To assist with evaluation and management of symptoms including: b. To assist medical decision maker(s) with: better understanding of current medical conditions; weighing benefits/burdens of medical treatment options; making medical treatment decisions. Primary Care Provider: UNKNOWN History of Present Illness History of Present Illness: Patient was admitted from a local prison with altered mental status. EMS was called after he was observed grabbing his leg and passing out. Current ED COurse: * Labs: WBC 6.7 hemoglobin 13.3, hematocrit 41.5, platelets 101, sodium 163, potassium 4.7, chloride 134, carbon dioxide 25.8, BUN 102, creatinine 3.86, GFR 15, glucose 62, calcium 7.4, albumin 2.9 * Chest x-ray stable * Head CT no acute processes * Renal ultrasound: Bilateral renal cyst. No hydronephrosis. Debris within the urinary bladder Function/Cognitive Trajectory: Patient has a history of dementia, was apparently living in a local prison. He was reportedly under constant supervised care prior to this event. PMF - History History Provided By: Family Member, Medical Record - Medical / Surgical Hx Neg / Unobtainable Medical Problems Denied: Unable to Obtain - Medical History Medical History: Medical History (Last Updated 01/28/18 @ 14:52 by MAUREEN Jasso) Anxiety Dementia GERD (gastroesophageal reflux disease) Glaucoma HTN (hypertension) Insomnia Seizure - Family History Family History: Family History (Last Reviewed 01/29/18 @ 11:35 by MAUREEN Jasso) Other Family history non-contributory - Social History I have reviewed the patient's Social History: Yes - Tobacco History Smoking Status: Unknown if ever smoked - Alcohol History How Often Do You Have a Drink Containing Alcohol: Unable to Obtain - Travel History Recent Travel in the [place] Within the Last 8 Weeks: No Recent Travel Out of the Country Within the Last 8 Weeks: No - Immunization History Tetanus Immunization: Unable to Assess Hx Influenza Vaccine This Season: Unable to Assess Medications and Allergies Active Medications: Active Medications Acetaminophen (Tylenol) 650 mg PO Q6H PRN PRN Reason: TEMPERATURE > 101 F Albuterol (Duoneb Neb (Prn)) 1 ampul NEB Q2HR NEB PRN PRN Reason: WHEEZING Bisacodyl (Dulcolax Supp) 10 mg RECTAL DAILY PRN PRN Reason: if no BM in last 24h Chlorhexidine Gluconate (Chlorhexidine 2% Cloth) 3 pack TOPICAL DAILY@0400 [facility] Stop: 02/02/18 03:59 Last Admin: 01/28/18 03:47 Dose: 3 pack Chlorhexidine Gluconate (Chlorhexidine 2% Cloth) 3 pack TOPICAL DAILY@0400 PRN PRN Reason: Extra cloth needed Stop: 02/02/18 03:59 Dextrose (D50w Vial) 50 ml IV.PUSH UNSCH PRN PRN Reason: PER HYPOGLYCEMIA PROTOCOL Last Admin: 01/28/18 02:17 Dose: 50 ml Glucagon (Glucagon Inj) 1 mg OTHER PRN PRN PRN Reason: for Hypoglycemia Protocol Heparin Sodium (Porcine) (Heparin Inj) 5,000 units SQ Q8HR [facility] Last Admin: 01/28/18 05:23 Dose: 5,000 units Hydralazine HCl (Apresoline Inj) 10 mg IV.PUSH Q30M PRN PRN Reason: sbp > 160, dbp > 95 Dextrose (D5w Inj) 1,000 mls @ 100 mls/hr IV.CONT .Q10H [facility] Last Admin: 01/28/18 05:00 Dose: 100 mls/hr Insulin Human Regular (Novolin R Correctional Sugar Inj) 0 units SQ Q6HR [facility]; Protocol Last Admin: 01/28/18 05:49 Dose: Not Given Labetalol HCl (Trandate Inj) 10 mg IV.PUSH Q20M PRN PRN Reason: sbp > 160 or DBP > 95 Lactulose (Lactulose Liq) 30 ml PO BID [facility] Last Admin: 01/28/18 09:57 Dose: Not Given Ondansetron HCl (Zofran Inj) 4 mg IV.PUSH Q6H PRN PRN Reason: NAUSEA OR VOMITING Polyethylene Glycol (Miralax) 17 gm PO BID [facility] Last Admin: 01/28/18 09:57 Dose: Not Given Senna/Docusate Sodium (Kavitha-Colace) 1 tab PO BID [facility] Last Admin: 01/28/18 09:57 Dose: Not Given Sodium Chloride (Ns Flush) 2 ml IV.FLUSH PRN PRN PRN Reason: FLUSH AFTER USING IV ACCESS Sodium Chloride (Ns Flush) 2 ml IV.FLUSH UNSCH PRN PRN Reason: FLUSH AFTER USING IV ACCESS Allergies Allergy/AdvReac Type Severity Reaction Status Date / Time No Known Allergies Unknown Uncoded 03/04/17 09:23 Home Medications Medication Instructions Recorded Confirmed Type acetaminophen [Tylenol] 650 mg PO Q4H PRN 01/27/18 01/27/18 History alprazolam [Xanax] 0.5 mg PO DAILY 01/27/18 01/27/18 History aspirin 81 mg PO DAILY 01/27/18 01/27/18 History atorvastatin 20 mg PO HS 01/27/18 01/27/18 History lisinopril 10 mg PO BID 01/27/18 01/27/18 History melatonin 3 mg PO HS 01/27/18 01/27/18 History memantine-donepezil [Namzaric] 1 cap PO HS 01/27/18 01/27/18 History metoprolol tartrate 50 mg PO BID 01/27/18 01/27/18 History potassium chloride 10 meq PO DAILY 01/27/18 01/27/18 History quetiapine [Seroquel] 50 mg PO HS 01/27/18 01/27/18 History ropinirole [Requip] 3 mg PO TID 01/27/18 01/27/18 History sertraline [Zoloft] 75 mg PO HS 01/27/18 01/27/18 History sertraline [Zoloft] 75 mg PO HS 01/27/18 01/27/18 History tizanidine 4 mg PO BID 01/27/18 01/27/18 History Advance Directives Power of Parts Chaser: Yes Power of Parts Chaser Name: Mariposa Croft Power of Parts Chaser Relationship to Patient: Family ([id number]) Family/friends goals: Aggressive care at this time. Briefly explored code status. POA states she would want everything done unless patient was felt to be in a vegetative state. Briefly discussed patient's cognitive status, likely difficulties with extubation, likelihood of worsening cognitive status. She is agreeable to further exploring options tomorrow to family meeting at 10:30 AM Physical Exam Vital Signs: Vital Signs - 24 hr 01/27/18 15:00 01/27/18 16:00 01/27/18 19:00 Temperature Pulse Rate 74 75 74 Respiratory Rate 17 18 20 Blood Pressure 109/79 127/59 L 126/64 Pulse Oximetry 97 97 98 01/27/18 20:00 01/27/18 21:00 01/27/18 21:05 Temperature 98.2 F Pulse Rate 73 73 77 Respiratory Rate 15 20 25 H Blood Pressure 117/65 143/69 H 143/69 H Pulse Oximetry 99 95 91 L 01/27/18 21:30 01/27/18 21:41 01/27/18 22:00 Temperature Pulse Rate 81 85 Respiratory Rate 20 21 Blood Pressure 148/72 H 156/117 H Pulse Oximetry 83 L 97 80 L 01/27/18 22:24 01/27/18 22:30 01/27/18 23:00 Temperature Pulse Rate 78 78 81 Respiratory Rate 17 19 18 Blood Pressure 149/72 H 148/81 H 135/64 Pulse Oximetry 85 L 94 L 91 L 01/27/18 23:39 01/28/18 00:00 01/28/18 00:09 Temperature 98.1 F Pulse Rate 82 91 H 87 Respiratory Rate 19 23 22 Blood Pressure 141/96 H 129/80 129/80 Pulse Oximetry 93 L 92 L 91 L 01/28/18 00:30 01/28/18 01:00 01/28/18 01:26 Temperature Pulse Rate 83 84 120 H Respiratory Rate 24 17 33 H Blood Pressure 138/72 150/81 H Pulse Oximetry 91 L 92 L 92 L 01/28/18 01:49 01/28/18 02:00 01/28/18 02:31 Temperature Pulse Rate 87 101 H Respiratory Rate 17 27 H Blood Pressure 132/70 148/69 H 153/116 H Pulse Oximetry 92 L 92 L 01/28/18 03:00 01/28/18 03:30 01/28/18 04:00 Temperature 98.8 F Pulse Rate 86 79 72 Respiratory Rate 20 14 15 Blood Pressure 136/69 101/56 L 132/64 Pulse Oximetry 94 L 91 L 01/28/18 04:30 01/28/18 05:00 01/28/18 05:43 Temperature Pulse Rate 75 82 87 Respiratory Rate 14 19 18 Blood Pressure 128/60 116/72 138/72 Pulse Oximetry 92 L 93 L 93 L 01/28/18 06:00 01/28/18 06:02 01/28/18 06:30 Temperature Pulse Rate 95 H 96 H 85 Respiratory Rate 30 H 38 H 15 Blood Pressure 123/78 123/78 129/70 Pulse Oximetry 94 L 92 L 01/28/18 07:00 01/28/18 07:08 01/28/18 07:30 Temperature Pulse Rate 95 H 84 82 Respiratory Rate 32 H 19 18 Blood Pressure 148/74 H 154/74 H Pulse Oximetry 83 L 92 L 01/28/18 07:56 01/28/18 08:00 01/28/18 08:30 Temperature Pulse Rate 83 89 Respiratory Rate 17 21 Blood Pressure 138/79 133/83 Pulse Oximetry 95 94 L 01/28/18 09:00 01/28/18 09:01 01/28/18 09:30 Temperature Pulse Rate 83 82 80 Respiratory Rate 21 20 21 Blood Pressure 126/85 140/77 Pulse Oximetry 01/28/18 10:00 01/28/18 10:30 01/28/18 11:00 Temperature Pulse Rate 76 94 H 75 Respiratory Rate 15 20 22 Blood Pressure 145/78 H 155/80 H 133/76 Pulse Oximetry 01/28/18 11:36 01/28/18 12:00 01/28/18 12:30 Temperature 98.4 F Pulse Rate 82 86 79 Respiratory Rate 13 13 19 Blood Pressure 131/68 135/73 135/81 Pulse Oximetry 01/28/18 13:00 01/28/18 13:30 01/28/18 14:00 Temperature Pulse Rate 77 77 80 Respiratory Rate 12 15 17 Blood Pressure 153/104 H 146/67 H Pulse Oximetry 01/28/18 14:01 Temperature Pulse Rate 74 Respiratory Rate 14 Blood Pressure 150/67 H Pulse Oximetry I&O: Intake & Output 01/26/18 01/27/18 01/28/18 01/29/18 06:59 06:59 06:59 06:59 Intake Total 3100 / 3100 1999 Output Total 1275 / 1275 725 / 725 Balance 1825 / 1825 1275 / 1275 Weight 68 kg Physical Exam: CONSTITUTIONAL/GENERAL: This is an adequately nourished patient, in no apparent distress. TUBES/LINES/DRAINS: Peripheral IV SKIN: No jaundice, rashes, or lesions. Ecchymoses on upper extremities. No wounds seen anteriorly. Skin temperature appropriate. Not diaphoretic. HEAD: Atraumatic. Normocephalic. EYES: Pupils equal and round and reactive. Extraocular motions intact. No scleral icterus. No injection or drainage. Fundi not examined. ENT: Hearing grossly normal. Nose without bleeding or purulent drainage. Throat without visible erythema, exudates, masses, or lesions. NECK: Trachea midline. Supple, nontender. No palpable thyroid enlargement or nodularity. CARDIOVASCULAR: Regular rate and rhythm without murmurs, gallops, or rubs. No JVD. Peripheral pulses symmetric. RESPIRATORY/CHEST: Symmetric, unlabored respirations. Unable to auscultate as patient continuously talks. GASTROINTESTINAL: Abdomen soft, non-tender, nondistended. No hepato-splenomegaly , or palpable masses. No guarding. Bowel sounds present. GENITOURINARY: Without palpable bladder distension. MUSCULOSKELETAL: Extremities without clubbing, cyanosis, or edema. No joint tenderness or effusion noted. No calf tenderness. No mottling or clubbing. LYMPHATICS: No palpable cervical or supraclavicular adenopathy. NEUROLOGICAL: Awake and alert. Unable to assess orientation. Patient only speaks Danish. PSYCHIATRIC: No obvious anxiety/depression. no apparent hallucinations or other psychotic thought process. Diagnostic Tests Laboratory: Laboratory Results - last 72 hr 01/27/18 01/27/18 01/27/18 11:40 11:40 11:58 WBC 6.7 RBC 4.03 L Hgb 13.3 Hct 41.5 MCV 103.0 H MCH 33.0 MCHC 32.1 RDW 18.8 H Plt Count 101 L MPV 11.3 H Prelim Diff (Auto) Neut % (Auto) 70.1 H Lymph % (Auto) 22.3 Gilmer % (Auto) 6.8 Eos % (Auto) 0.5 Baso % (Auto) 0.3 Neut # (Auto) 4.7 Lymph # (Auto) 1.5 Gilmer # (Auto) 0.5 Eos # (Auto) 0.0 Baso # (Auto) 0.0 WBC Differential . Seg Neuts % (Manual) Band Neuts % (Manual) Lymphocytes % (Manual) Monocytes % (Manual) Eosinophils % (Manual) Myelocytes % (Man) Abs Neuts (Manual) Differential Comment Auto diff final Platelet Estimate Platelet Morphology PT 10.5 INR 1.0 APTT 24.7 Sodium Potassium Chloride Carbon Dioxide Anion Gap BUN Creatinine Estimated GFR POC Glucose 158 H Random Glucose Lactic Acid Calcium Calcium Adj for Albumin Phosphorus Magnesium Total Bilirubin AST ALT Alkaline Phosphatase Total Creatine Kinase Troponin I Total Protein Albumin Urine Color Urine Clarity Urine pH Ur Specific Moore Urine Protein Urine Glucose (UA) Urine Ketones Urine Occult Blood Urine Nitrate Urine Bilirubin Urine Urobilinogen Ur Leukocyte Esterase Urine RBC Urine WBC Ur Squamous Epith Cells Amorphous Sediment Urine Bacteria Hyaline Casts Urine Mucus Micro UA Comment Ur Microscopic Review Urine Culture Comments Nasal Screen MRSA (PCR) 01/27/18 01/27/18 01/27/18 12:45 13:10 13:27 WBC RBC Hgb Hct MCV MCH MCHC RDW Plt Count MPV Prelim Diff (Auto) Neut % (Auto) Lymph % (Auto) Gilmer % (Auto) Eos % (Auto) Baso % (Auto) Neut # (Auto) Lymph # (Auto) Gilmer # (Auto) Eos # (Auto) Baso # (Auto) WBC Differential Seg Neuts % (Manual) Band Neuts % (Manual) Lymphocytes % (Manual) Monocytes % (Manual) Eosinophils % (Manual) Myelocytes % (Man) Abs Neuts (Manual) Differential Comment Platelet Estimate Platelet Morphology PT INR APTT Sodium 164 H* Potassium 5.3 H Chloride 133 H Carbon Dioxide 25.4 Anion Gap 6 BUN 106 H Creatinine 4.92 H Estimated GFR 12 L POC Glucose Random Glucose 100 Lactic Acid 1.7 Calcium 7.3 L* Calcium Adj for Albumin 8.3 L Phosphorus Magnesium 3.3 H Total Bilirubin 0.2 AST 30 ALT 32 Alkaline Phosphatase 64 Total Creatine Kinase 119 Troponin I Less than 0.02 L Total Protein 6.5 Albumin 2.8 L Urine Color Tamar Urine Clarity Cloudy H Urine pH 5.0 Ur Specific Moore 1.023 Urine Protein 100 H Urine Glucose (UA) 50 Urine Ketones Trace H Urine Occult Blood Negative Urine Nitrate Negative Urine Bilirubin Negative Urine Urobilinogen Less than 2 Ur Leukocyte Esterase Negative Urine RBC 2 Urine WBC 4 Ur Squamous Epith Cells 4 Amorphous Sediment Few H Urine Bacteria Rare H Hyaline Casts 48 Urine Mucus Moderate H Micro UA Comment Cath-culture ind Ur Microscopic Review Not Reportable Urine Culture Comments Cath-cult indicated Nasal Screen MRSA (PCR) 01/27/18 01/27/18 01/27/18 16:35 17:00 23:23 WBC RBC Hgb Hct MCV MCH MCHC RDW Plt Count MPV Prelim Diff (Auto) Neut % (Auto) Lymph % (Auto) Gilmer % (Auto) Eos % (Auto) Baso % (Auto) Neut # (Auto) Lymph # (Auto) Gilmer # (Auto) Eos # (Auto) Baso # (Auto) WBC Differential Seg Neuts % (Manual) Band Neuts % (Manual) Lymphocytes % (Manual) Monocytes % (Manual) Eosinophils % (Manual) Myelocytes % (Man) Abs Neuts (Manual) Differential Comment Platelet Estimate Platelet Morphology PT INR APTT Sodium 163 H* 162 H* Potassium 4.7 4.4 Chloride 134 H 133 H Carbon Dioxide 25.8 25.2 Anion Gap 3 L 4 L BUN 102 H 88 H Creatinine 3.86 H 2.82 H Estimated GFR 15 L 22 L POC Glucose Random Glucose 62 L 77 Lactic Acid Calcium 7.4 L* 7.5 L Calcium Adj for Albumin 8.3 L Phosphorus 2.6 Magnesium 2.9 H Total Bilirubin AST ALT Alkaline Phosphatase Total Creatine Kinase Troponin I Total Protein Albumin 2.9 L Urine Color Urine Clarity Urine pH Ur Specific Moore Urine Protein Urine Glucose (UA) Urine Ketones Urine Occult Blood Urine Nitrate Urine Bilirubin Urine Urobilinogen Ur Leukocyte Esterase Urine RBC Urine WBC Ur Squamous Epith Cells Amorphous Sediment Urine Bacteria Hyaline Casts Urine Mucus Micro UA Comment Ur Microscopic Review Urine Culture Comments Nasal Screen MRSA (PCR) Not detected 01/28/18 01/28/18 01/28/18 00:04 02:11 03:43 WBC RBC Hgb Hct MCV MCH MCHC RDW Plt Count MPV Prelim Diff (Auto) Neut % (Auto) Lymph % (Auto) Gilmer % (Auto) Eos % (Auto) Baso % (Auto) Neut # (Auto) Lymph # (Auto) Gilmer # (Auto) Eos # (Auto) Baso # (Auto) WBC Differential Seg Neuts % (Manual) Band Neuts % (Manual) Lymphocytes % (Manual) Monocytes % (Manual) Eosinophils % (Manual) Myelocytes % (Man) Abs Neuts (Manual) Differential Comment Platelet Estimate Platelet Morphology PT INR APTT Sodium Potassium Chloride Carbon Dioxide Anion Gap BUN Creatinine Estimated GFR POC Glucose 60 L 82 103 Random Glucose Lactic Acid Calcium Calcium Adj for Albumin Phosphorus Magnesium Total Bilirubin AST ALT Alkaline Phosphatase Total Creatine Kinase Troponin I Total Protein Albumin Urine Color Urine Clarity Urine pH Ur Specific Moore Urine Protein Urine Glucose (UA) Urine Ketones Urine Occult Blood Urine Nitrate Urine Bilirubin Urine Urobilinogen Ur Leukocyte Esterase Urine RBC Urine WBC Ur Squamous Epith Cells Amorphous Sediment Urine Bacteria Hyaline Casts Urine Mucus Micro UA Comment Ur Microscopic Review Urine Culture Comments Nasal Screen MRSA (PCR) 01/28/18 01/28/18 01/28/18 05:35 05:35 05:48 WBC 6.5 RBC 3.98 L Hgb 13.0 Hct 39.6 MCV 99.5 D MCH 32.7 MCHC 32.8 RDW 17.0 Plt Count 87 L MPV 10.7 Prelim Diff (Auto) Slide review pending Neut % (Auto) 62.8 Lymph % (Auto) 26.0 Gilmer % (Auto) 7.9 Eos % (Auto) 2.9 Baso % (Auto) 0.4 Neut # (Auto) 4.1 Lymph # (Auto) 1.7 Gilmer # (Auto) 0.5 Eos # (Auto) 0.2 Baso # (Auto) 0.0 WBC Differential Manual diff final Seg Neuts % (Manual) 57 Band Neuts % (Manual) 2 Lymphocytes % (Manual) 31 Monocytes % (Manual) 5 Eosinophils % (Manual) 3 Myelocytes % (Man) 2 H Abs Neuts (Manual) 4.0 Differential Comment . Platelet Estimate Low L Platelet Morphology Normal PT INR APTT Sodium 162 H* Potassium Chloride Carbon Dioxide Anion Gap BUN Creatinine Estimated GFR POC Glucose 84 Random Glucose Lactic Acid Calcium Calcium Adj for Albumin Phosphorus Magnesium Total Bilirubin AST ALT Alkaline Phosphatase Total Creatine Kinase Troponin I Total Protein Albumin Urine Color Urine Clarity Urine pH Ur Specific Moore Urine Protein Urine Glucose (UA) Urine Ketones Urine Occult Blood Urine Nitrate Urine Bilirubin Urine Urobilinogen Ur Leukocyte Esterase Urine RBC Urine WBC Ur Squamous Epith Cells Amorphous Sediment Urine Bacteria Hyaline Casts Urine Mucus Micro UA Comment Ur Microscopic Review Urine Culture Comments Nasal Screen MRSA (PCR) 01/28/18 11:47 WBC RBC Hgb Hct MCV MCH MCHC RDW Plt Count MPV Prelim Diff (Auto) Neut % (Auto) Lymph % (Auto) Gilmer % (Auto) Eos % (Auto) Baso % (Auto) Neut # (Auto) Lymph # (Auto) Gilmer # (Auto) Eos # (Auto) Baso # (Auto) WBC Differential Seg Neuts % (Manual) Band Neuts % (Manual) Lymphocytes % (Manual) Monocytes % (Manual) Eosinophils % (Manual) Myelocytes % (Man) Abs Neuts (Manual) Differential Comment Platelet Estimate Platelet Morphology PT INR APTT Sodium Potassium Chloride Carbon Dioxide Anion Gap BUN Creatinine Estimated GFR POC Glucose 82 Random Glucose Lactic Acid Calcium Calcium Adj for Albumin Phosphorus Magnesium Total Bilirubin AST ALT Alkaline Phosphatase Total Creatine Kinase Troponin I Total Protein Albumin Urine Color Urine Clarity Urine pH Ur Specific Moore Urine Protein Urine Glucose (UA) Urine Ketones Urine Occult Blood Urine Nitrate Urine Bilirubin Urine Urobilinogen Ur Leukocyte Esterase Urine RBC Urine WBC Ur Squamous Epith Cells Amorphous Sediment Urine Bacteria Hyaline Casts Urine Mucus Micro UA Comment Ur Microscopic Review Urine Culture Comments Nasal Screen MRSA (PCR) Result Diagrams: 01/29/18 04:03 01/29/18 04:03 Microbiology: Microbiology 01/27/18 12:45 Urine Culture - Preliminary Catheterized Urine No growth in 24 hours Imaging: Impressions Abdomen/Bladder Ultrasound 01/27/18 14:16 CONCLUSION: 1. Bilateral renal cysts. 2. No hydronephrosis. 3. Debris within the urinary bladder, correlation with urinalysis recommended. Patient/Family Conference Family Conference Location: Telephone Issues Discussed: * Palliative care role, purpose, approach * Additional medical, psychosocial, and spiritual history * Patients general health, functional status, and cognitive changes in the months leading up to the current hospitalization * Patient/family understanding of the current medical problems * Patient/family understanding of prognosis * Patients goals of care as best understood from advance directives and/or conversations and/or values * Current medical treatment options and benefits/burdens of those options * Likely scenarios comparing ongoing aggressive care with a transition to comfort measures only * Questions answered to the best of my ability * Palliative care contact information provided Assessment and Plan - Symptom Scale (1) Confusion 0-10 Scale: Unable to quantify Pertinent Non-Medical Issues: Psychosocial: Patient was residing in a prison prior to this hospitalization. His [id number] is his healthcare surrogate/POA. Spiritual: Kidney Trimmer available Legal: Patient is incapacitated to make his own decisions, he is not expected to regain capacity. He has designated Mariposa Croft as healthcare surrogate/POA Ethical issues impacting care: None Important Contacts: Mariposa Croft (POA) [phone] Prognosis: Patient has baseline dementia, apparently has been declining over the recent several months. According to [id number], patient has not been eating or drinking very much the past few weeks. Given functional decline, the fact that he is not eating or drinking, life expectancy is limited. Would be medically eligible for hospice services if goals are are appropriate Code Status: Full Code Plan: Legal decision maker:Patient's [id number] is POA HCS. Patient is incapacitated to make his own decisions, he is not expected to regain capacity. He has designated Mariposa Croft as healthcare surrogate/POA Goals: Goals remain aggressive at this time. Plan for meeting tomorrow morning at 10:30 AM to further discuss goals of care. CODE STATUS: Full code SYMPTOMS: --Pain: Patient's had a history of falls. Anticipatory pain secondary to immobility possibly chronic pain due to those falls. Does not appear to be in pain at this time. Does not have pain medicine ordered at this time. Will need to reassess for pain in the coming days. --Confusion: Was under 24-hour supervision at the facility prior to coming to the hospital for restlessness and agitation. He is primarily Danish-speaking only. At risk for worsening confusion/delirium secondary to ICU psychosis, electrolyte imbalance, baseline dementia. Currently he is pleasantly confused. Does not appear agitated though he is in restraints. Will continue to monitor. Palliative care will continue to follow during hospital course as condition evolves, to assist patient/decision-maker with understanding of medical conditions, weighing benefits/burdens of treatment options, for clarification of goals of treatment. Additionally will assist with any symptoms of palliative concern Appreciation Thank you for the opportunity to participate in the care of Ed Lang. Attestation Collaborating Comments: Dr. Leblanc Attestation: To help prompt me to consider important information that might be impacting today's encounter and assessment, information from prior notes written by myself or my colleagues may have been "brought forward" into today's note. My signature on this note, however, is an attestation that I personally performed the exam, history, and/or decision-making noted today, and, unless otherwise indicated, the interactions with patient, family, and staff as well as the review of records all occurred today. I also attest that the listed assessment and stated plan reflect my best clinical judgment today based on the combination of historical information, prior notes, and today's exam/ interactions. When time spent is documented, it refers only to time spent today by the signer, or if indicated, combined time spent today by collaborating physician/nurse practitioner.
--- NOTE | 2018-01-28 17:02 | P.PNCC ---
Subjective Subjective Remarks/Hospital Course: Hospital Course: 72yM resident of SNF presents with altered mental status. found to have Na 167, severe dehydration. no fever, chills. unable to participate in history. ROS unobtainable. by physical exam appears profoundly dehydrated and malnourished. Cr > 4 and appears pre-renal based on SG 1.025 and BUN/Cr ratio. Subjective: 01/28: Na trending down in an appropriate manner, slowly as intended. mental status is improving such that he is more awake, however he remains very confused. 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 Family left a few weeks ago to go to [place], and I suspect he has not had adequate nutrition or PO intake since that time, which led to severe dehydration. I think this is most likely due to his end-stage dementia. ROS unobtainable. Objective Vital Signs / I&O: Vital Signs 01/27/18 19:00 01/27/18 20:00 01/27/18 21:00 Temperature 36.8 C Pulse Rate 74 73 73 Respiratory Rate 20 15 20 Blood Pressure 126/64 117/65 143/69 H Pulse Oximetry 98 99 95 01/27/18 21:05 01/27/18 21:30 01/27/18 21:41 Temperature Pulse Rate 77 81 Respiratory Rate 25 H 20 Blood Pressure 143/69 H 148/72 H Pulse Oximetry 91 L 83 L 97 01/27/18 22:00 01/27/18 22:24 01/27/18 22:30 Temperature Pulse Rate 85 78 78 Respiratory Rate 21 17 19 Blood Pressure 156/117 H 149/72 H 148/81 H Pulse Oximetry 80 L 85 L 94 L 01/27/18 23:00 01/27/18 23:39 01/28/18 00:00 Temperature 36.7 C Pulse Rate 81 82 91 H Respiratory Rate 18 19 23 Blood Pressure 135/64 141/96 H 129/80 Pulse Oximetry 91 L 93 L 92 L 01/28/18 00:09 01/28/18 00:30 01/28/18 01:00 Temperature Pulse Rate 87 83 84 Respiratory Rate 22 24 17 Blood Pressure 129/80 138/72 150/81 H Pulse Oximetry 91 L 91 L 92 L 01/28/18 01:26 01/28/18 01:49 01/28/18 02:00 Temperature Pulse Rate 120 H 87 Respiratory Rate 33 H 17 Blood Pressure 132/70 148/69 H Pulse Oximetry 92 L 92 L 01/28/18 02:31 01/28/18 03:00 01/28/18 03:30 Temperature Pulse Rate 101 H 86 79 Respiratory Rate 27 H 20 14 Blood Pressure 153/116 H 136/69 101/56 L Pulse Oximetry 92 L 94 L 01/28/18 04:00 01/28/18 04:30 01/28/18 05:00 Temperature 37.1 C Pulse Rate 72 75 82 Respiratory Rate 15 14 19 Blood Pressure 132/64 128/60 116/72 Pulse Oximetry 91 L 92 L 93 L 01/28/18 05:43 01/28/18 06:00 01/28/18 06:02 Temperature Pulse Rate 87 95 H 96 H Respiratory Rate 18 30 H 38 H Blood Pressure 138/72 123/78 123/78 Pulse Oximetry 93 L 94 L 01/28/18 06:30 01/28/18 07:00 01/28/18 07:08 Temperature Pulse Rate 85 95 H 84 Respiratory Rate 15 32 H 19 Blood Pressure 129/70 148/74 H Pulse Oximetry 92 L 83 L 92 L 01/28/18 07:30 01/28/18 07:56 01/28/18 08:00 Temperature Pulse Rate 82 83 Respiratory Rate 18 17 Blood Pressure 154/74 H 138/79 Pulse Oximetry 95 94 L 01/28/18 08:30 01/28/18 09:00 01/28/18 09:01 Temperature Pulse Rate 89 83 82 Respiratory Rate 21 21 20 Blood Pressure 133/83 126/85 Pulse Oximetry 01/28/18 09:30 01/28/18 10:00 01/28/18 10:30 Temperature Pulse Rate 80 76 94 H Respiratory Rate 21 15 20 Blood Pressure 140/77 145/78 H 155/80 H Pulse Oximetry 01/28/18 11:00 01/28/18 11:36 01/28/18 12:00 Temperature 36.9 C Pulse Rate 75 82 86 Respiratory Rate 22 13 13 Blood Pressure 133/76 131/68 135/73 Pulse Oximetry 01/28/18 12:30 01/28/18 13:00 01/28/18 13:30 Temperature Pulse Rate 79 77 77 Respiratory Rate 19 12 15 Blood Pressure 135/81 153/104 H 146/67 H Pulse Oximetry 01/28/18 14:00 01/28/18 14:01 Temperature Pulse Rate 80 74 Respiratory Rate 17 14 Blood Pressure 150/67 H Pulse Oximetry Intake & Output 01/27/18 01/28/18 01/28/18 18:59 06:59 18:59 Intake Total 2100 / 2100 1000 / 1000 3000 / 3000 Output Total 425 / 425 850 / 850 725 / 725 Balance 1675 / 1675 150 / 150 2275 / 2275 Weight 72.575 kg 68 kg Intake: IV 2100 / 2100 1000 / 1000 3000 / 3000 D5W Inj 1,000 ML @ 100 mls/hr 1000 / 1000 IV.CONT .Q10H JANNETH Rx#:[id number] NS Inj 1,000 ML @ 150 mls/hr IV 1000 / 1000 .CONT .Q6H40M JANNETH Rx#:[id number] 1/2 Normal Saline Inj 1,000 ML 1000 / 1000 1000 / 1000 @ 150 mls/hr IV.CONT .Q6H40M JANNETH Rx#:[id number] NS Inj 1,000 ML @ 1000 mls/hr 1999 / 1999 IV.SIG BOLUS JANNETH Rx#:[id number] Rocephin Inj 1,000 MG In NS Inj 100 / 100 100 ML @ 200 mls/hr IV.SIG ONCE ONE Rx#:[id number] Output: Urine Amount (Catheter) 425 / 425 850 / 850 725 / 725 Straight 425 / 425 850 / 850 725 / 725 Other: # Voids 0 Result Diagrams: 01/28/18 05:35 01/28/18 12:51 Objective Remarks: gen: frail elderly male, lying in bed, awake but confused. heent: nc. at. perrl. mucous membranes dry neck: no jvd. trachea midline. chest: equal chest rise. room air. cv: normal rate, regular rhythm. sinus. abd: soft, nt, nd. no guarding. extr: no edema. poor skin turgor. distal pulses 2+ neuro: RASS -1. vigorous cough and gag. protects airway. does not follow commands. moves all extremities. Assessment and Plan - Assessment and Plan Plan: Assessment: 72yM with evidence of profound dehydration leading to life- threatening hypernatremia and acute kidney injury. gently add back free water in attempt to slowly lower sodium. over-correction can lead to cerebral edema. I do think that long-term, if we are to continue aggressive medical care, the patient will need permanent PEG tube placement to ensure adequate nutrition/ hydration. I explained this to the family, and explained that we need to overall evaluate his goals of care and quality of life, as PEG tube in the setting of end-stage dementia usually leads to a very poor quality of life. I have asked palliative care to consult and assist. Active problems: life-threatening hypernatremia- slowly improving severe acute metabolic encephalopathy- improving severe dehydration- very slowly resolving. severe acute kidney injury- improving Uremia end-stage dementia Plan: keep in ICU while sodiums trending down. continue d5w @ 100cc/hr. serial straight cath serial sodiums daily bmp, mg, phos daily cbc no infectious etiology suspected protecting airway- close neuro checks avoid long-acting sedatives scds, sqh, pepcid. npo until mental status improves: speech eval. will ask hospitalist service to assume care now that critical illness improving.
[2018-01-29 00:49] LABS: Calcium 7.3 mg/dL (8.5-10.1); Carbon Dioxide 29.2 meq/L (21.0-32.0); Magnesium 2.3 mg/dL (1.5-2.5); Phosphorus 1.4 mg/dL (2.5-4.9); Potassium 3.8 meq/L (3.5-5.1)
[2018-01-29 01:02] LABS: Albumin 2.9 g/dL (3.4-5.0); Calcium-Albumin Corrected 8.2 mg/dL (8.5-10.1)
[2018-01-29] MEDS: Dextrose 5% in Water Inj 1,000 ML IV.CONT SCH ×3 (02:22→20:48)
[2018-01-29 04:28] LABS: Baso % (Auto) 0.6 % (0.0-2.0); Eos # (Auto) 0.1 th/mm3 (0.0-0.4); Eos % (Auto) 2.3 % (0.0-4.0); Hematocrit 38.6 % (39.0-51.0); Hemoglobin 12.8 gm/dL (13.0-17.0); Lymph # (Auto) 1.8 th/mm3 (1.0-4.8); Lymph % (Auto) 31.8 % (9.0-44.0); Mean Corpuscular HGB Conc 33.2 % (32.0-36.0); Mean Corpuscular Hemoglobin 32.8 pg (27.0-34.0); Mean Corpuscular Volume 98.7 fL (80.0-100.0); Mean Platelet Volume 10.2 fL (7.0-11.0); Mono # (Auto) 0.4 th/mm3 (0.0-0.9); Mono % (Auto) 7.9 % (0.0-8.0); Neut # (Auto) 3.2 th/mm3 (1.8-7.7); Neut % (Auto) 57.4 % (16.0-70.0); Platelet Count 86 th/mm3 (150-450); Red Blood Count 3.91 mil/mm3 (4.50-5.90); Red Cell Distribution Width 16.1 % (11.6-17.2); White Blood Count 5.6 th/mm3 (4.0-11.0)
[2018-01-29] MEDS: Chlorhexidine Gluconate 2% 1 Pack (2 Cloths) TOPICAL SCH (05:43)
[2018-01-29] MEDS: Heparin - SQ 10,000 UNITS/ML Vial SQ SCH ×3 (05:43→22:33)
[2018-01-29] MEDS: Insulin NovoLIN Regular Correctional Sugar Inj SQ SCH ×3 (06:06→19:00)
[2018-01-29] MEDS: Senna/Docusate Sodium 8.6/50 MG Tablet PO SCH ×2 (08:40→20:28)
[2018-01-29] MEDS: Polyethylene Glycol 3350 17 GM Packet PO SCH ×2 (08:40→20:28)
--- NOTE | 2018-01-29 09:29 | P.PNIM ---
Subjective Interval history: Patient still requiring restraints. Remain confused. Discussed with RN. Physical Exam Vital signs: Last Vital Signs Temp 97.4 F L 01/29/18 04:00 Pulse 59 L 01/29/18 06:00 Resp 25 H 01/29/18 06:00 BP 153/75 H 01/29/18 06:00 Pulse Ox 96 01/29/18 08:41 Intake & Output 01/27/18 01/28/18 01/29/18 01/30/18 06:59 06:59 06:59 06:59 Intake Total 3100 / 3100 4000 / 4000 Output Total 1275 / 1275 1095 / 1095 Balance 1825 / 1825 2905 / 2905 Weight 68 kg 66.5 kg Narrative: GENERAL: Frail and elderly male in no apparent distress. CARDIOVASCULAR: Normal rate and regular rhythm without murmurs, gallops, or rubs. RESPIRATORY: Breath sounds equal and clear to auscultation bilaterally. GASTROINTESTINAL: Abdomen soft, non-tender, non-distended. Normal active bowel sounds MUSCULOSKELETAL: Extremities without cyanosis, or edema. NEURO: Patient does not follow commands. He does move all 4 extremities. Profoundly confused. Urinary Catheter Management Straight: Cath placed during this visit: no Results Labs CBC & Chem 7: 01/29/18 04:03 01/29/18 04:03 Labs: Microbiology 01/27/18 12:45 Catheterized Urine Urine Culture - Preliminary No growth in 24 hours Assessment and Plan Plan 72-year-old male with end-stage dementia admitted with life-threatening hypernatremia and acute severe metabolic encephalopathy. life-threatening hypernatremia- slowly improving severe acute metabolic encephalopathy- improving severe dehydration- very slowly resolving. severe acute kidney injury- improving Uremia end-stage dementia Plan: Continue D5W at 100 cc/h. Hypernatremia improving. serial straight cath serial sodiums daily bmp, mg, phos daily cbc no infectious etiology suspected avoid long-acting sedatives Speech therapy following. Case discussed with palliative care. The family's goal at this point is to stabilize his sodium with plan to discharge home with hospice. They understand that he does not drink and of water, his sodium will likely get worse again. Continue IV fluid as above. Plan to discharge home with hospice tomorrow if sodium continues to improve. Progress Note: Quality VTE Deep Vein Thrombosis/Pulmonary Embolism Present on Admission: No
--- NOTE | 2018-01-29 11:32 | P.PNPAL ---
Reason for Visit Reason for visit: a. To assist with evaluation and management of symptoms including: b. To assist medical decision maker(s) with: better understanding of current medical conditions; weighing benefits/burdens of medical treatment options; making medical treatment decisions. Subjective Subjective/Interval History: Patient was admitted from a local [place] [facility] [place] facility with altered mental status. EMS was called after he was observed grabbing his leg and passing out. Current ED COurse: * Labs: WBC 6.7 hemoglobin 13.3, hematocrit 41.5, platelets 101, sodium 163, potassium 4.7, chloride 134, carbon dioxide 25.8, BUN 102, creatinine 3.86, GFR 15, glucose 62, calcium 7.4, albumin 2.9 * Chest x-ray stable * Head CT no acute processes * Renal ultrasound: Bilateral renal cyst. No hydronephrosis. Debris within the urinary bladder Patient remains in ICU, sodium is stabilizing slowly, today it is 154. He remains confused, restrained, and [place] speaking only. Spoke with Dr. Saini who is in agreement with this plan. Family/Friend Interactions: Met with ELY Monge and her who is the patient's son. She reports that the patient has been living at a local [place] [facility] care facility along with his who also has dementia. She states she and her brought the patient and his here from [place] after they spent all of their money, including life insurance , and the [employer] in [place] and began "getting lost." She states she was unaware that the patient had stopped eating or drinking. She also states that she would not want to have a feeding tube placed or start artificial feeding. They indicate they have another family member with dementia who was recently admitted to hospice in [place], but had several complications secondary to PEG and tube feedings, they indicate this is what has directed their decision. Family reports that the patient has been from his at the facility as she has become combative with the patient. They would like to maximize current treatments with plans to take him home with hospice. Explored code status, family now electing DNR. Objective Vital Signs: Vital Signs 01/28/18 11:36 01/28/18 12:00 01/28/18 12:30 Temperature 98.4 F Pulse Rate 82 86 79 Respiratory Rate 13 13 19 Blood Pressure 131/68 135/73 135/81 Pulse Oximetry 01/28/18 13:00 01/28/18 13:30 01/28/18 14:00 Temperature Pulse Rate 77 77 80 Respiratory Rate 12 15 17 Blood Pressure 153/104 H 146/67 H Pulse Oximetry 01/28/18 14:01 01/28/18 14:30 01/28/18 15:00 Temperature Pulse Rate 74 80 84 Respiratory Rate 14 12 15 Blood Pressure 150/67 H 145/96 H 164/84 H Pulse Oximetry 01/28/18 15:35 01/28/18 16:00 01/28/18 16:01 Temperature Pulse Rate 72 81 80 Respiratory Rate 15 14 17 Blood Pressure 124/64 137/65 Pulse Oximetry 92 L 01/28/18 16:32 01/28/18 17:00 01/28/18 17:29 Temperature Pulse Rate 82 95 H 79 Respiratory Rate 20 34 H 15 Blood Pressure 140/99 H 137/71 Pulse Oximetry 93 L 01/28/18 17:30 01/28/18 18:00 01/28/18 18:01 Temperature Pulse Rate 80 80 80 Respiratory Rate 16 26 H 23 Blood Pressure 141/64 H 186/79 H Pulse Oximetry 92 L 01/28/18 19:00 01/28/18 20:00 01/28/18 20:37 Temperature 97.9 F Pulse Rate 77 75 90 Respiratory Rate 17 17 20 Blood Pressure 145/74 H 155/78 H Pulse Oximetry 97 92 L 01/28/18 21:00 01/28/18 22:00 01/28/18 23:00 Temperature Pulse Rate 89 96 H 80 Respiratory Rate 19 19 14 Blood Pressure 131/63 133/84 135/67 Pulse Oximetry 98 92 L 97 01/29/18 00:00 01/29/18 01:00 01/29/18 02:00 Temperature 97.6 F Pulse Rate 76 66 73 Respiratory Rate 20 14 16 Blood Pressure 144/94 H 150/79 H 135/87 Pulse Oximetry 98 98 95 01/29/18 03:00 01/29/18 04:00 01/29/18 05:00 Temperature 97.4 F L Pulse Rate 87 65 88 Respiratory Rate 24 18 27 H Blood Pressure 149/89 H 140/72 148/69 H Pulse Oximetry 98 01/29/18 06:00 01/29/18 07:00 01/29/18 08:00 Temperature 98.4 F Pulse Rate 59 L 61 54 L Respiratory Rate 25 H 19 15 Blood Pressure 153/75 H 140/67 154/76 H Pulse Oximetry 98 01/29/18 08:41 01/29/18 09:00 01/29/18 10:00 Temperature Pulse Rate 54 L 65 Respiratory Rate 19 19 Blood Pressure 143/68 H 148/72 H Pulse Oximetry 96 69 L Intake & Output 01/28/18 01/29/18 01/29/18 18:59 06:59 18:59 Intake Total 3000 / 3000 1000 / 1000 Output Total 1025 / 1025 70 / 70 Balance 1974 930 / 930 Weight 66.5 kg Intake: IV 3000 / 3000 1000 / 1000 D5W Inj 1,000 ML @ 100 mls/hr 1000 / 1000 1000 / 1000 IV.CONT .Q10H JANNETH Rx#:[id number] NS Inj 1,000 ML @ 150 mls/hr IV 1000 / 1000 .CONT .Q6H40M JANNETH Rx#:[id number] 1/2 Normal Saline Inj 1,000 ML 1000 / 1000 @ 150 mls/hr IV.CONT .Q6H40M JANNETH Rx#:[id number] Output: Urine Amount (Catheter) 1025 / 1025 70 / 70 Straight 1025 / 1025 70 / 70 Other: # Voids 3 1 Physical Exam: CONSTITUTIONAL/GENERAL: This is an adequately nourished patient, in no apparent distress. TUBES/LINES/DRAINS: Peripheral IV SKIN: No jaundice, rashes, or lesions. Ecchymoses on upper extremities. No wounds seen anteriorly. Skin temperature appropriate. Not diaphoretic. HEAD: Atraumatic. Normocephalic. EYES: Pupils equal and round and reactive. Extraocular motions intact. No scleral icterus. No injection or drainage. Fundi not examined. ENT: Hearing grossly normal. Nose without bleeding or purulent drainage. Throat without visible erythema, exudates, masses, or lesions. NECK: Trachea midline. Supple, nontender. No palpable thyroid enlargement or nodularity. CARDIOVASCULAR: Regular rate and rhythm without murmurs, gallops, or rubs. No JVD. Peripheral pulses symmetric. RESPIRATORY/CHEST: Symmetric, unlabored respirations. Unable to auscultate as patient continuously talks. GASTROINTESTINAL: Abdomen soft, non-tender, nondistended. No hepato-splenomegaly , or palpable masses. No guarding. Bowel sounds present. GENITOURINARY: Without palpable bladder distension. MUSCULOSKELETAL: Extremities without clubbing, cyanosis, or edema. No joint tenderness or effusion noted. No calf tenderness. No mottling or clubbing. LYMPHATICS: No palpable cervical or supraclavicular adenopathy. NEUROLOGICAL: Awake and alert. Unable to assess orientation. Patient only speaks [place]. PSYCHIATRIC: No obvious anxiety/depression. no apparent hallucinations or other psychotic thought process. Diagnostic Tests Laboratory: Laboratory Results - last 72 hr 01/27/18 01/27/18 01/27/18 11:40 11:40 11:58 WBC 6.7 RBC 4.03 L Hgb 13.3 Hct 41.5 MCV 103.0 H MCH 33.0 MCHC 32.1 RDW 18.8 H Plt Count 101 L MPV 11.3 H Prelim Diff (Auto) Neut % (Auto) 70.1 H Lymph % (Auto) 22.3 [place] % (Auto) 6.8 Eos % (Auto) 0.5 Baso % (Auto) 0.3 Neut # (Auto) 4.7 Lymph # (Auto) 1.5 [place] # (Auto) 0.5 Eos # (Auto) 0.0 Baso # (Auto) 0.0 WBC Differential . Diff Scan Seg Neuts % (Manual) Band Neuts % (Manual) Lymphocytes % (Manual) Monocytes % (Manual) Eosinophils % (Manual) Myelocytes % (Man) Abs Neuts (Manual) Differential Comment Auto diff final Platelet Estimate Platelet Morphology PT 10.5 INR 1.0 APTT 24.7 Sodium Potassium Chloride Carbon Dioxide Anion Gap BUN Creatinine Estimated GFR POC Glucose 158 H Random Glucose Lactic Acid Calcium Calcium Adj for Albumin Phosphorus Magnesium Total Bilirubin AST ALT Alkaline Phosphatase Total Creatine Kinase Troponin I Total Protein Albumin Urine Color Urine Clarity Urine pH Ur Specific [place] Urine Protein Urine Glucose (UA) Urine Ketones Urine Occult Blood Urine Nitrate Urine Bilirubin Urine Urobilinogen Ur Leukocyte Esterase Urine RBC Urine WBC Ur Squamous Epith Cells Amorphous Sediment Urine Bacteria Hyaline Casts Urine Mucus Micro UA Comment Ur Microscopic Review Urine Culture Comments Nasal Screen MRSA (PCR) 01/27/18 01/27/18 01/27/18 12:45 13:10 13:27 WBC RBC Hgb Hct MCV MCH MCHC RDW Plt Count MPV Prelim Diff (Auto) Neut % (Auto) Lymph % (Auto) [place] % (Auto) Eos % (Auto) Baso % (Auto) Neut # (Auto) Lymph # (Auto) [place] # (Auto) Eos # (Auto) Baso # (Auto) WBC Differential Diff Scan Seg Neuts % (Manual) Band Neuts % (Manual) Lymphocytes % (Manual) Monocytes % (Manual) Eosinophils % (Manual) Myelocytes % (Man) Abs Neuts (Manual) Differential Comment Platelet Estimate Platelet Morphology PT INR APTT Sodium 164 H* Potassium 5.3 H Chloride 133 H Carbon Dioxide 25.4 Anion Gap 6 BUN 106 H Creatinine 4.92 H Estimated GFR 12 L POC Glucose Random Glucose 100 Lactic Acid 1.7 Calcium 7.3 L* Calcium Adj for Albumin 8.3 L Phosphorus Magnesium 3.3 H Total Bilirubin 0.2 AST 30 ALT 32 Alkaline Phosphatase 64 Total Creatine Kinase 119 Troponin I Less than 0.02 L Total Protein 6.5 Albumin 2.8 L Urine Color Tamar Urine Clarity Cloudy H Urine pH 5.0 Ur Specific [place] 1.023 Urine Protein 100 H Urine Glucose (UA) 50 Urine Ketones Trace H Urine Occult Blood Negative Urine Nitrate Negative Urine Bilirubin Negative Urine Urobilinogen Less than 2 Ur Leukocyte Esterase Negative Urine RBC 2 Urine WBC 4 Ur Squamous Epith Cells 4 Amorphous Sediment Few H Urine Bacteria Rare H Hyaline Casts 48 Urine Mucus Moderate H Micro UA Comment Cath-culture ind Ur Microscopic Review Not Reportable Urine Culture Comments Cath-cult indicated Nasal Screen MRSA (PCR) 01/27/18 01/27/18 01/27/18 16:35 17:00 23:23 WBC RBC Hgb Hct MCV MCH MCHC RDW Plt Count MPV Prelim Diff (Auto) Neut % (Auto) Lymph % (Auto) [place] % (Auto) Eos % (Auto) Baso % (Auto) Neut # (Auto) Lymph # (Auto) [place] # (Auto) Eos # (Auto) Baso # (Auto) WBC Differential Diff Scan Seg Neuts % (Manual) Band Neuts % (Manual) Lymphocytes % (Manual) Monocytes % (Manual) Eosinophils % (Manual) Myelocytes % (Man) Abs Neuts (Manual) Differential Comment Platelet Estimate Platelet Morphology PT INR APTT Sodium 163 H* 162 H* Potassium 4.7 4.4 Chloride 134 H 133 H Carbon Dioxide 25.8 25.2 Anion Gap 3 L 4 L BUN 102 H 88 H Creatinine 3.86 H 2.82 H Estimated GFR 15 L 22 L POC Glucose Random Glucose 62 L 77 Lactic Acid Calcium 7.4 L* 7.5 L Calcium Adj for Albumin 8.3 L Phosphorus 2.6 Magnesium 2.9 H Total Bilirubin AST ALT Alkaline Phosphatase Total Creatine Kinase Troponin I Total Protein Albumin 2.9 L Urine Color Urine Clarity Urine pH Ur Specific [place] Urine Protein Urine Glucose (UA) Urine Ketones Urine Occult Blood Urine Nitrate Urine Bilirubin Urine Urobilinogen Ur Leukocyte Esterase Urine RBC Urine WBC Ur Squamous Epith Cells Amorphous Sediment Urine Bacteria Hyaline Casts Urine Mucus Micro UA Comment Ur Microscopic Review Urine Culture Comments Nasal Screen MRSA (PCR) Not detected 01/28/18 01/28/18 01/28/18 00:04 02:11 03:43 WBC RBC Hgb Hct MCV MCH MCHC RDW Plt Count MPV Prelim Diff (Auto) Neut % (Auto) Lymph % (Auto) [place] % (Auto) Eos % (Auto) Baso % (Auto) Neut # (Auto) Lymph # (Auto) [place] # (Auto) Eos # (Auto) Baso # (Auto) WBC Differential Diff Scan Seg Neuts % (Manual) Band Neuts % (Manual) Lymphocytes % (Manual) Monocytes % (Manual) Eosinophils % (Manual) Myelocytes % (Man) Abs Neuts (Manual) Differential Comment Platelet Estimate Platelet Morphology PT INR APTT Sodium Potassium Chloride Carbon Dioxide Anion Gap BUN Creatinine Estimated GFR POC Glucose 60 L 82 103 Random Glucose Lactic Acid Calcium Calcium Adj for Albumin Phosphorus Magnesium Total Bilirubin AST ALT Alkaline Phosphatase Total Creatine Kinase Troponin I Total Protein Albumin Urine Color Urine Clarity Urine pH Ur Specific [place] Urine Protein Urine Glucose (UA) Urine Ketones Urine Occult Blood Urine Nitrate Urine Bilirubin Urine Urobilinogen Ur Leukocyte Esterase Urine RBC Urine WBC Ur Squamous Epith Cells Amorphous Sediment Urine Bacteria Hyaline Casts Urine Mucus Micro UA Comment Ur Microscopic Review Urine Culture Comments Nasal Screen MRSA (PCR) 01/28/18 01/28/18 01/28/18 05:35 05:35 05:48 WBC 6.5 RBC 3.98 L Hgb 13.0 Hct 39.6 MCV 99.5 D MCH 32.7 MCHC 32.8 RDW 17.0 Plt Count 87 L MPV 10.7 Prelim Diff (Auto) Slide review pending Neut % (Auto) 62.8 Lymph % (Auto) 26.0 [place] % (Auto) 7.9 Eos % (Auto) 2.9 Baso % (Auto) 0.4 Neut # (Auto) 4.1 Lymph # (Auto) 1.7 [place] # (Auto) 0.5 Eos # (Auto) 0.2 Baso # (Auto) 0.0 WBC Differential Manual diff final Diff Scan Seg Neuts % (Manual) 57 Band Neuts % (Manual) 2 Lymphocytes % (Manual) 31 Monocytes % (Manual) 5 Eosinophils % (Manual) 3 Myelocytes % (Man) 2 H Abs Neuts (Manual) 4.0 Differential Comment . Platelet Estimate Low L Platelet Morphology Normal PT INR APTT Sodium 162 H* Potassium Chloride Carbon Dioxide Anion Gap BUN Creatinine Estimated GFR POC Glucose 84 Random Glucose Lactic Acid Calcium Calcium Adj for Albumin Phosphorus Magnesium Total Bilirubin AST ALT Alkaline Phosphatase Total Creatine Kinase Troponin I Total Protein Albumin Urine Color Urine Clarity Urine pH Ur Specific [place] Urine Protein Urine Glucose (UA) Urine Ketones Urine Occult Blood Urine Nitrate Urine Bilirubin Urine Urobilinogen Ur Leukocyte Esterase Urine RBC Urine WBC Ur Squamous Epith Cells Amorphous Sediment Urine Bacteria Hyaline Casts Urine Mucus Micro UA Comment Ur Microscopic Review Urine Culture Comments Nasal Screen MRSA (PCR) 01/28/18 01/28/18 01/28/18 11:47 12:51 17:50 WBC RBC Hgb Hct MCV MCH MCHC RDW Plt Count MPV Prelim Diff (Auto) Neut % (Auto) Lymph % (Auto) [place] % (Auto) Eos % (Auto) Baso % (Auto) Neut # (Auto) Lymph # (Auto) [place] # (Auto) Eos # (Auto) Baso # (Auto) WBC Differential Diff Scan Seg Neuts % (Manual) Band Neuts % (Manual) Lymphocytes % (Manual) Monocytes % (Manual) Eosinophils % (Manual) Myelocytes % (Man) Abs Neuts (Manual) Differential Comment Platelet Estimate Platelet Morphology PT INR APTT Sodium 158 H* 157 H* Potassium Chloride Carbon Dioxide Anion Gap BUN Creatinine Estimated GFR POC Glucose 82 Random Glucose Lactic Acid Calcium Calcium Adj for Albumin Phosphorus Magnesium Total Bilirubin AST ALT Alkaline Phosphatase Total Creatine Kinase Troponin I Total Protein Albumin Urine Color Urine Clarity Urine pH Ur Specific [place] Urine Protein Urine Glucose (UA) Urine Ketones Urine Occult Blood Urine Nitrate Urine Bilirubin Urine Urobilinogen Ur Leukocyte Esterase Urine RBC Urine WBC Ur Squamous Epith Cells Amorphous Sediment Urine Bacteria Hyaline Casts Urine Mucus Micro UA Comment Ur Microscopic Review Urine Culture Comments Nasal Screen MRSA (PCR) 01/28/18 01/28/18 01/29/18 18:09 23:26 00:03 WBC RBC Hgb Hct MCV MCH MCHC RDW Plt Count MPV Prelim Diff (Auto) Neut % (Auto) Lymph % (Auto) [place] % (Auto) Eos % (Auto) Baso % (Auto) Neut # (Auto) Lymph # (Auto) [place] # (Auto) Eos # (Auto) Baso # (Auto) WBC Differential Diff Scan Seg Neuts % (Manual) Band Neuts % (Manual) Lymphocytes % (Manual) Monocytes % (Manual) Eosinophils % (Manual) Myelocytes % (Man) Abs Neuts (Manual) Differential Comment Platelet Estimate Platelet Morphology PT INR APTT Sodium 155 H Potassium 3.8 Chloride 123 H D Carbon Dioxide 29.2 Anion Gap 3 L BUN 43 H Creatinine 1.27 Estimated GFR 55 L POC Glucose 72 100 Random Glucose 112 H Lactic Acid Calcium 7.3 L* Calcium Adj for Albumin 8.2 L Phosphorus 1.4 L D Magnesium 2.3 D Total Bilirubin AST ALT Alkaline Phosphatase Total Creatine Kinase Troponin I Total Protein Albumin 2.9 L Urine Color Urine Clarity Urine pH Ur Specific [place] Urine Protein Urine Glucose (UA) Urine Ketones Urine Occult Blood Urine Nitrate Urine Bilirubin Urine Urobilinogen Ur Leukocyte Esterase Urine RBC Urine WBC Ur Squamous Epith Cells Amorphous Sediment Urine Bacteria Hyaline Casts Urine Mucus Micro UA Comment Ur Microscopic Review Urine Culture Comments Nasal Screen MRSA (PCR) 01/29/18 01/29/18 01/29/18 04:03 04:03 06:00 WBC 5.6 RBC 3.91 L Hgb 12.8 L Hct 38.6 L MCV 98.7 MCH 32.8 MCHC 33.2 RDW 16.1 Plt Count 86 L MPV 10.2 Prelim Diff (Auto) Slide review pending Neut % (Auto) 57.4 Lymph % (Auto) 31.8 [place] % (Auto) 7.9 Eos % (Auto) 2.3 Baso % (Auto) 0.6 Neut # (Auto) 3.2 Lymph # (Auto) 1.8 [place] # (Auto) 0.4 Eos # (Auto) 0.1 Baso # (Auto) 0.0 WBC Differential . Diff Scan Auto diff confirmed Seg Neuts % (Manual) Band Neuts % (Manual) Lymphocytes % (Manual) Monocytes % (Manual) Eosinophils % (Manual) Myelocytes % (Man) Abs Neuts (Manual) Differential Comment . Platelet Estimate Platelet Morphology PT INR APTT Sodium 154 H Potassium Chloride Carbon Dioxide Anion Gap BUN Creatinine Estimated GFR POC Glucose 90 Random Glucose Lactic Acid Calcium Calcium Adj for Albumin Phosphorus Magnesium Total Bilirubin AST ALT Alkaline Phosphatase Total Creatine Kinase Troponin I Total Protein Albumin Urine Color Urine Clarity Urine pH Ur Specific [place] Urine Protein Urine Glucose (UA) Urine Ketones Urine Occult Blood Urine Nitrate Urine Bilirubin Urine Urobilinogen Ur Leukocyte Esterase Urine RBC Urine WBC Ur Squamous Epith Cells Amorphous Sediment Urine Bacteria Hyaline Casts Urine Mucus Micro UA Comment Ur Microscopic Review Urine Culture Comments Nasal Screen MRSA (PCR) Result Diagrams: 01/29/18 04:03 01/29/18 04:03 Microbiology: Microbiology 01/27/18 12:45 Urine Culture - Final Catheterized Urine No growth in 48 hours Assessment and Plan - Symptom Scale (1) Confusion 0-10 Scale: Unable to quantify Pertinent Non-Medical Issues: Psychosocial: Patient was residing in [place] prior to this hospitalization. His [id number] is his healthcare surrogate/POA. Patient was brought here by his family from [place] after he and his spent all of their money and life insurance at the [facility] and started getting lost for days at a time. Spiritual: Direct Marketing Executive available Legal: Patient is incapacitated to make his own decisions, he is not expected to regain capacity. He has designated Mariposa Croft as healthcare surrogate/POA Ethical issues impacting care: None Important Contacts: Mariposa Croft ([facility]) [phone] Prognosis: Patient has baseline dementia, apparently has been declining over the recent several months. According to [id number], patient has not been eating or drinking very much the past few weeks. Given functional decline, the fact that he is not eating or drinking, life expectancy is limited. Would be medically eligible for hospice services if goals are are appropriate. Family agreeable to meeting with hospice. Code Status: No Code DNR Plan: Legal decision maker:Patient's [id number] is POA [facility]. Patient is incapacitated to make his own decisions, he is not expected to regain capacity. He has designated Mariposa Croft as healthcare surrogate/POA Goals: Family does not want the patient to suffer. They would like to maximize current treatments and bring the patient home with hospice services. CODE STATUS: DNR SYMPTOMS: --Pain: Patient's had a history of falls. Anticipatory pain secondary to immobility possibly chronic pain due to those falls. Does not appear to be in pain at this time. Does not have pain medicine ordered at this time. Will need to reassess for pain in the coming days. --Confusion: Was under 24-hour supervision at the facility prior to coming to the hospital for restlessness and agitation. He is primarily [place]-speaking only. At risk for worsening confusion/delirium secondary to ICU psychosis, electrolyte imbalance, baseline dementia. Currently he is pleasantly confused. Does not appear agitated though he is in restraints. Will continue to monitor. Palliative care will continue to follow during hospital course as condition evolves, to assist patient/decision-maker with understanding of medical conditions, weighing benefits/burdens of treatment options, for clarification of goals of treatment. Additionally will assist with any symptoms of palliative concern Attestation Attestation: To help prompt me to consider important information that might be impacting today's encounter and assessment, information from prior notes written by myself or my colleagues may have been "brought forward" into today's note. My signature on this note, however, is an attestation that I personally performed the exam, history, and/or decision-making noted today, and, unless otherwise indicated, the interactions with patient, family, and staff as well as the review of records all occurred today. I also attest that the listed assessment and stated plan reflect my best clinical judgment today based on the combination of historical information, prior notes, and today's exam/ interactions. When time spent is documented, it refers only to time spent today by the signer, or if indicated, combined time spent today by collaborating physician/nurse practitioner.
[2018-01-30] MEDS: Insulin NovoLIN Regular Correctional Sugar Inj SQ SCH ×4 (01:17→18:23)
[2018-01-30 05:49] LABS: Baso % (Auto) 0.6 % (0.0-2.0); Eos # (Auto) 0.2 th/mm3 (0.0-0.4); Hematocrit 41.1 % (39.0-51.0); Hemoglobin 14.1 gm/dL (13.0-17.0); Lymph # (Auto) 1.8 th/mm3 (1.0-4.8); Lymph % (Auto) 32.3 % (9.0-44.0); Mean Corpuscular HGB Conc 34.2 % (32.0-36.0); Mean Corpuscular Hemoglobin 32.8 pg (27.0-34.0); Mono # (Auto) 0.4 th/mm3 (0.0-0.9); Mono % (Auto) 7.5 % (0.0-8.0); Neut % (Auto) 55.6 % (16.0-70.0); Platelet Count 92 th/mm3 (150-450); Red Blood Count 4.29 mil/mm3 (4.50-5.90); Red Cell Distribution Width 15.2 % (11.6-17.2); White Blood Count 5.4 th/mm3 (4.0-11.0)
[2018-01-30] MEDS: Heparin - SQ 10,000 UNITS/ML Vial SQ SCH ×3 (05:53→22:47)
[2018-01-30] MEDS: Chlorhexidine Gluconate 2% 1 Pack (2 Cloths) TOPICAL SCH (05:53)
[2018-01-30 06:08] LABS: Calcium 7.7 mg/dL (8.5-10.1); Carbon Dioxide 27.9 meq/L (21.0-32.0); Magnesium 2.2 mg/dL (1.5-2.5); Phosphorus 1.3 mg/dL (2.5-4.9); Potassium 3.5 meq/L (3.5-5.1)
[2018-01-30 08:31] LABS: Eosinophils 3 % (0-4); Lymphocytes 26 % (9-44); Monocytes 1 % (0-8); Platelet Morphology Normal (Normal)
--- NOTE | 2018-01-30 08:40 | P.DS ---
DS: Providers Date of admission: 01/27/18 14:22 Primary care physician: UNKNOWN Consults: 01/28/18 09:47 Consult to Palliative Care Routine Consulting Provider: Mayito Leblanc Reason for Consultation: end-stage dementia Notified:: Service Spoke with:: Wil Date Notified:: 01/28/18 Time Notified:: 09:53 Ordering Provider: PATRICIA 01/28/18 15:40 HUB Only Consult Order Routine Consulting Provider: [facility] 01/28/18 17:03 Consult to Hospitalist Routine Consulting Provider: Telly Otero Reason for Consultation: end-stage dementia, hypernatremia Notified:: Service Spoke with:: Madelaine Date Notified:: 01/28/18 Time Notified:: 17:14 Ordering Provider: PATRICIA Brief History from admission: HPI as documented by the admitting physician: [place] resident of SNF presents with altered mental status. found to have Na 167, severe dehydration. no fever, chills. unable to participate in history. ROS unobtainable. by physical exam appears profoundly dehydrated and malnourished. Cr > 4 and appears pre-renal based on SG 1.025 and BUN/Cr ratio. DS: Summary 72-year-old male with end-stage dementia admitted with life-threatening hypernatremia and acute severe metabolic encephalopathy. Patient presented with life-threatening hypernatremia, severe acute metabolic encephalopathy, severe dehydration, severe acute kidney injury, uremia. Patient apparently has end-stage dementia and has been declining at home. The patient was admitted to the critical care service and treated aggressively with IV fluid. Hypernatremia , uremia, and renal failure is significantly improved. The patient was followed by palliative care and met with family. Once the patient's lab stabilized, family elected to take him home with hospice. Time Spent with Patient Total time spent providing and/or coordinating discharge services: >30 min Status at Discharge Functional status at discharge: bed bound Quality: VTE Deep Vein Thrombosis/Pulmonary Embolism Present on Admission: No Exam Narrative Exam Narrative: Narrative: GENERAL: Frail and elderly male in no apparent distress. CARDIOVASCULAR: Normal rate and regular rhythm without murmurs, gallops, or rubs. RESPIRATORY: Breath sounds equal and clear to auscultation bilaterally. GASTROINTESTINAL: Abdomen soft, non-tender, non-distended. Normal active bowel sounds MUSCULOSKELETAL: Extremities without cyanosis, or edema. NEURO: Patient does not follow commands. He does move all 4 extremities. Profoundly confused. Results Labs on day of discharge: Labs from last 24 hours 01/30/18 01/30/18 01/30/18 05:20 04:33 04:33 WBC 5.4 RBC 4.29 L Hgb 14.1 Hct 41.1 MCV 96.0 MCH 32.8 MCHC 34.2 RDW 15.2 Plt Count 92 L MPV 10.0 Prelim Diff (Auto) Slide review pending Neut % (Auto) 55.6 Lymph % (Auto) 32.3 [place] % (Auto) 7.5 Eos % (Auto) 4.0 Baso % (Auto) 0.6 Neut # (Auto) 3.0 Lymph # (Auto) 1.8 [place] # (Auto) 0.4 Eos # (Auto) 0.2 Baso # (Auto) 0.0 WBC Differential Manual diff final Seg Neuts % (Manual) 62 Band Neuts % (Manual) 8 H Lymphocytes % (Manual) 26 Monocytes % (Manual) 1 Eosinophils % (Manual) 3 Abs Neuts (Manual) 3.8 Differential Comment . Platelet Estimate Low L Platelet Morphology Normal Sodium 142 D Potassium 3.5 Chloride 107 D Carbon Dioxide 27.9 Anion Gap 7 BUN 19 H Creatinine 0.92 Estimated GFR 80 L POC Glucose 110 Random Glucose 102 Calcium 7.7 L Phosphorus 1.3 L Magnesium 2.2 01/30/18 01:03 WBC RBC Hgb Hct MCV MCH MCHC RDW Plt Count MPV Prelim Diff (Auto) Neut % (Auto) Lymph % (Auto) [place] % (Auto) Eos % (Auto) Baso % (Auto) Neut # (Auto) Lymph # (Auto) [place] # (Auto) Eos # (Auto) Baso # (Auto) WBC Differential Seg Neuts % (Manual) Band Neuts % (Manual) Lymphocytes % (Manual) Monocytes % (Manual) Eosinophils % (Manual) Abs Neuts (Manual) Differential Comment Platelet Estimate Platelet Morphology Sodium Potassium Chloride Carbon Dioxide Anion Gap BUN Creatinine Estimated GFR POC Glucose 88 Random Glucose Calcium Phosphorus Magnesium Impressions ITS Impressions Chest X-Ray 01/27/18 11:54 CONCLUSION: 1. Stable elevation right hemidiaphragm with some atelectasis in the right lung base. 2. No new or acute infiltrates. Head CT 01/27/18 11:54 CONCLUSION: 1. No focal or acute intracranial hemorrhage. 2. Stable CT scan of the brain compared to the prior study with stable bilateral cortical atrophy. . Abdomen/Bladder Ultrasound 01/27/18 14:16 CONCLUSION: 1. Bilateral renal cysts. 2. No hydronephrosis. 3. Debris within the urinary bladder, correlation with urinalysis recommended. Discharge Plan Discharge Disposition Patient Disposition: 50 Hospice/Home Discharge Condition Condition: Stable Discharge Order Discharge Orders: Discharge Order (Routine); Ordered 01/30/18 Ordered By: Puneet Saini Discharge Details Anticipated Discharge Date: 01/30/18 Physicians Team Primary Care Provider: UNKNOWN, Attending Provider: Puneet Saini Other Providers: Mayito Leblanc ; [facility] Rxs /Orders / Referrals /Forms Prescriptions: Continue acetaminophen [Tylenol] 325 mg Tablet 650 mg PO Q4H PRN (Reason: Pain/Fever) RF: 0 atorvastatin 20 mg Tablet 20 mg PO HS RF: 0 ropinirole [Requip] 1 mg Tablet 3 mg PO TID RF: 0 tizanidine 4 mg Tablet 4 mg PO BID RF: 0 potassium chloride 10 mEq Tablet Extended Release 10 meq PO DAILY RF: 0 melatonin 3 mg Tablet 3 mg PO HS RF: 0 aspirin 81 mg Tablet,Delayed Release (Dr/Ec) 81 mg PO DAILY RF: 0 alprazolam [Xanax] 0.5 mg Tablet 0.5 mg PO DAILY RF: 0 lisinopril 10 mg Tablet 10 mg PO BID RF: 0 metoprolol tartrate 50 mg Tablet 50 mg PO BID RF: 0 sertraline [Zoloft] 25 mg Tablet 75 mg PO HS RF: 0 sertraline [Zoloft] 50 mg Tablet 75 mg PO HS RF: 0 quetiapine [Seroquel] 50 mg Tablet 50 mg PO HS RF: 0 memantine-donepezil [Namzaric] 28-10 mg Capsule,Sprinkle,Er 24hr 1 cap PO HS RF: 0 Referrals: UNKNOWN, [Primary Care Provider] - See Instructions Status ED Status: Left Department
[2018-01-30] MEDS: Polyethylene Glycol 3350 17 GM Packet PO SCH ×2 (10:55→20:32)
[2018-01-30] MEDS: Senna/Docusate Sodium 8.6/50 MG Tablet PO SCH ×2 (10:56→20:32)
[2018-01-30] MEDS: Dextrose 5% in Water Inj 1,000 ML IV.CONT SCH ×2 (12:00→20:31)
[2018-01-30 21:35] VITALS: RESP 16
[2018-01-31 01:24] VITALS: O2SAT 95
[2018-01-31] MEDS: Insulin NovoLIN Regular Correctional Sugar Inj SQ SCH ×2 (01:24→05:40)
[2018-01-31 05:09] VITALS: PULSE 73
[2018-01-31 05:31] LABS: Baso % (Auto) 0.4 % (0.0-2.0); Carbon Dioxide 25.9 meq/L (21.0-32.0); Eos # (Auto) 0.2 th/mm3 (0.0-0.4); Eos % (Auto) 2.9 % (0.0-4.0); Hematocrit 38.8 % (39.0-51.0); Hemoglobin 13.5 gm/dL (13.0-17.0); Lymph # (Auto) 1.7 th/mm3 (1.0-4.8); Lymph % (Auto) 27.7 % (9.0-44.0); Mean Corpuscular HGB Conc 34.7 % (32.0-36.0); Mean Corpuscular Hemoglobin 32.8 pg (27.0-34.0); Mean Corpuscular Volume 94.5 fL (80.0-100.0); Mean Platelet Volume 9.8 fL (7.0-11.0); Mono # (Auto) 0.5 th/mm3 (0.0-0.9); Mono % (Auto) 7.8 % (0.0-8.0); Neut # (Auto) 3.8 th/mm3 (1.8-7.7); Neut % (Auto) 61.2 % (16.0-70.0); Phosphorus 1.7 mg/dL (2.5-4.9); Platelet Count 99 th/mm3 (150-450); Potassium 3.5 meq/L (3.5-5.1); Red Blood Count 4.11 mil/mm3 (4.50-5.90); Red Cell Distribution Width 15.3 % (11.6-17.2); White Blood Count 6.2 th/mm3 (4.0-11.0)
[2018-01-31] MEDS: Dextrose 5% in Water Inj 1,000 ML IV.CONT SCH (05:36)
[2018-01-31 05:37] LABS: Albumin 2.8 g/dL (3.4-5.0)
[2018-01-31] MEDS: Chlorhexidine Gluconate 2% 1 Pack (2 Cloths) TOPICAL SCH (05:37)
[2018-01-31] MEDS: Heparin - SQ 10,000 UNITS/ML Vial SQ SCH (06:21)
--- NOTE | 2018-01-31 07:19 | P.PNIM ---
Subjective Interval history: f/u; hypernatremia in no acute distress. resting comfortably. Physical Exam Vital signs: Vital Signs 01/30/18 08:00 01/30/18 09:00 01/30/18 10:00 Temperature Pulse Rate 54 L 64 59 L Respiratory Rate 14 19 17 Blood Pressure 119/66 152/78 H 142/74 H Pulse Oximetry 97 86 L 01/30/18 11:00 01/30/18 12:00 01/30/18 13:00 Temperature Pulse Rate 63 69 80 Respiratory Rate 13 12 14 Blood Pressure 150/85 H 128/77 135/75 Pulse Oximetry 01/30/18 14:00 01/30/18 14:01 01/30/18 15:00 Temperature Pulse Rate 82 82 77 Respiratory Rate 11 L 12 17 Blood Pressure 143/76 H 133/77 Pulse Oximetry 71 L 01/30/18 16:00 01/30/18 17:00 01/30/18 18:00 Temperature Pulse Rate 82 84 80 Respiratory Rate 16 12 15 Blood Pressure 134/73 139/81 138/70 Pulse Oximetry 77 L 76 L 76 L 01/30/18 19:00 01/30/18 20:00 01/30/18 21:00 Temperature 99.5 F Pulse Rate 85 87 Respiratory Rate 16 16 Blood Pressure 113/67 Pulse Oximetry 92 L 01/31/18 00:00 01/31/18 04:00 Temperature 98.7 F 98.7 F Pulse Rate 80 73 Respiratory Rate 16 16 Blood Pressure 127/70 130/69 Pulse Oximetry 95 Intake & Output 01/30/18 01/31/18 01/31/18 18:59 06:59 18:59 Intake Total 1000 / 1000 1000 / 1000 Balance 1000 / 1000 1000 / 1000 Weight 67.5 kg Intake: IV 1000 / 1000 1000 / 1000 D5W Inj 1,000 ML @ 100 mls/hr 1000 / 1000 1000 / 1000 IV.CONT .Q10H JANNETH Rx#:[id number] Oral 0 / 0 Other: # Voids 2 2 - Constitutional no acute distress - Routine Respiratory Exam Present: CTA bilaterally - Routine Cardiovascular Exam Present: RRR - Routine Abdominal Exam Present: soft - Routine Extremities Exam Comments: no pedal edema. - Routine Neurological Exam awake but demented. - Urinary Catheter Management Straight Cath placed during this visit: no Reason for continuing: Not indwelling catheter Results - Labs CBC & Chem 7: 01/31/18 04:49 01/31/18 04:49 Laboratory Results - last 24 hr 01/30/18 01/31/18 01/31/18 04:33 01:12 04:49 WBC 6.2 RBC 4.11 L Hgb 13.5 Hct 38.8 L MCV 94.5 MCH 32.8 MCHC 34.7 RDW 15.3 Plt Count 99 L MPV 9.8 Prelim Diff (Auto) Slide review pending Neut % (Auto) 61.2 Lymph % (Auto) 27.7 [place] % (Auto) 7.8 Eos % (Auto) 2.9 Baso % (Auto) 0.4 Neut # (Auto) 3.8 Lymph # (Auto) 1.7 [place] # (Auto) 0.5 Eos # (Auto) 0.2 Baso # (Auto) 0.0 WBC Differential Manual diff final Seg Neuts % (Manual) 62 Band Neuts % (Manual) 8 H Lymphocytes % (Manual) 26 Monocytes % (Manual) 1 Eosinophils % (Manual) 3 Abs Neuts (Manual) 3.8 Differential Comment . Platelet Estimate Low L Platelet Morphology Normal Sodium Potassium Chloride Carbon Dioxide Anion Gap BUN Creatinine Estimated GFR POC Glucose 119 H Random Glucose Calcium Calcium Adj for Albumin Phosphorus Magnesium Albumin 01/31/18 04:49 WBC RBC Hgb Hct MCV MCH MCHC RDW Plt Count MPV Prelim Diff (Auto) Neut % (Auto) Lymph % (Auto) [place] % (Auto) Eos % (Auto) Baso % (Auto) Neut # (Auto) Lymph # (Auto) [place] # (Auto) Eos # (Auto) Baso # (Auto) WBC Differential Seg Neuts % (Manual) Band Neuts % (Manual) Lymphocytes % (Manual) Monocytes % (Manual) Eosinophils % (Manual) Abs Neuts (Manual) Differential Comment Platelet Estimate Platelet Morphology Sodium 139 Potassium 3.5 Chloride 105 Carbon Dioxide 25.9 Anion Gap 8 BUN 12 Creatinine 0.89 Estimated GFR 84 L POC Glucose Random Glucose 114 H Calcium 7.0 L* Calcium Adj for Albumin 8.0 L Phosphorus 1.7 L Magnesium 2.0 Albumin 2.8 L Assessment and Plan - Plan life-threatening hypernatremia- resolved. severe acute metabolic encephalopathy- improved. severe dehydration- resolved. severe acute kidney injury- resolved. end-stage dementia plan; dc home with hospice today. Discharge Planning: home with hospice today.
[2018-01-31 08:15] LABS: Platelet Morphology Normal (Normal)
[2018-01-31] MEDS: Polyethylene Glycol 3350 17 GM Packet PO SCH (09:06)
[2018-01-31] MEDS: Senna/Docusate Sodium 8.6/50 MG Tablet PO SCH (09:06)
[2018-01-31 14:41] VITALS: BP 124/72; TEMP 98.4
== END 2018-01-31 15:15 | disposition hospice, home (50) ==
LOC: NEPE 11:10 → NEDA 14:22 → HIMC 16:25
PROVIDERS: ADMIT Internal Medicine; ATTEND Internal Medicine